=== PATIENT | male | born 1940 | race Caucasian/White ===

== ENCOUNTER 2017-09-30 10:19 | Inpatient (IN) | payer MEDICAID, MEDICARE ==
[~2017-09-30] VITALS: Ht 170.2 cm; Wt 80.5 kg
[~2017-09-30 10:19] MED LIST: ALBUTEROL INHALER; LISINOPRIL
[2017-09-30] MEDS ORDERED: ALBUTEROL/IPRATROPIUM 2.5MG/0.5MG, 3 ML NPPB SCH (11:00)
[2017-09-30 11:13] LABS: BASOPHILS # (AUTO) 0.01 x10^3/uL (0-0.1); BASOPHILS % (AUTO) 0 % (0-1); EOSINOPHILS # (AUTO) 0.03 x10^3/uL (0-0.4); EOSINOPHILS % (AUTO) 0 % (1-7); LYMPHOCYTES # (AUTO) 1.46 x10^3/uL (1-3.4); LYMPHOCYTES % (AUTO) 11 % (22-44); MD NO; MEAN CORPUSCULAR HEMOGLOBIN 30.5 pg (27.5-34.5); MEAN CORPUSCULAR HGB CONC 33.9 g/dL (33.2-36.2); MEAN PLATELET VOLUME 8.2 fL (7.4-10.4); MONOCYTES % (AUTO) 6 % (2-9); NEUTROPHILS # (AUTO) 11.41 x10^3/uL (1.8-6.8); NEUTROPHILS % (AUTO) 83 % (42-75); PLATELET COUNT 233 x10^3/uL (130-400); RED BLOOD COUNT 4.28 x10^6/uL (4.38-5.82); RED CELL DISTRIBUTION WIDTH 15.4 % (9.4-14.8)
[2017-09-30 11:24] LABS: ALBUMIN 3.8 g/dL (3.4-5.0); ANION GAP 9 mmol/L (5-15); CALCIUM 8.7 mg/dL (8.5-10.1); CHLORIDE 103 mmol/L (98-107)
[2017-09-30 11:28] LABS: TROPONIN I < 0.015 ng/mL (0.000-0.045)
[2017-09-30] MEDS ORDERED: ALBUTEROL/IPRATROPIUM 2.5MG/0.5MG, 3 ML ONE (11:40)
[2017-09-30] MEDS ORDERED: ASPI-515 PO (12:01)
[2017-09-30] MEDS ORDERED: ONDANSETRON 2MG/ML, 2ML IVPush PRN (13:30)
[2017-09-30] MEDS ORDERED: CEFTRIAXONE 1,000 MG in SODIUM CHLORIDE 0.9% 50 ML IVPB ONE (13:30)
[2017-09-30] MEDS ORDERED: POLYETHYLENE GLYCOL 17 GM PACKET PO PRN (13:30)
[2017-09-30] MEDS ORDERED: ONDANSETRON ODT 4 MG PO PRN (13:30)
[2017-09-30] MEDS ORDERED: ACETAMINOPHEN 325 MG TABLET PO PRN (13:30)
[2017-09-30] MEDS ORDERED: ALBUTEROL/IPRATROPIUM 2.5MG/0.5MG, 3 ML NPPB PRN (14:00)
[2017-09-30] MEDS: ALBUTEROL/IPRATROPIUM 2.5MG/0.5MG, 3 ML NPPB SCH ×2 (14:34→19:55)
[2017-09-30 14:37] VITALS: BP 130/70
[2017-09-30] MEDS: SODIUM CHLORIDE 0.9% 1,000 ML IV SCH (16:11)
[2017-09-30] MEDS: AZITHROMYCIN 500 MG in SODIUM CHLORIDE 0.9% 250 ML IV SCH (16:12)
[2017-09-30] MEDS: ENOXAPARIN 40 MG/0.4 ML SQ SCH (16:12)
[2017-09-30] MEDS: methylPREDNISolone SOD SUCC 40 MG/ML IVPush SCH ×2 (16:12→22:06)
[2017-09-30] MEDS: CEFTRIAXONE 1,000 MG in SODIUM CHLORIDE 0.9% 50 ML IV SCH (17:22)
[2017-09-30 19:18] VITALS: BP 159/74
[2017-10-01 00:18] VITALS: BP 144/64
[2017-10-01 05:20] LABS: BASOPHILS % (AUTO) 0 % (0-1); EOSINOPHILS % (AUTO) 0 % (1-7); LYMPHOCYTES # (AUTO) 0.54 x10^3/uL (1-3.4); LYMPHOCYTES % (AUTO) 8 % (22-44); MD NO; MEAN CORPUSCULAR HEMOGLOBIN 30.3 pg (27.5-34.5); MEAN CORPUSCULAR HGB CONC 33.7 g/dL (33.2-36.2); MEAN PLATELET VOLUME 8.6 fL (7.4-10.4); MONOCYTES # (AUTO) 0.19 x10^3/uL (0.2-0.8); MONOCYTES % (AUTO) 3 % (2-9); NEUTROPHILS % (AUTO) 89 % (42-75); PLATELET COUNT 165 x10^3/uL (130-400); RED BLOOD COUNT 3.91 x10^6/uL (4.38-5.82); RED CELL DISTRIBUTION WIDTH 15.5 % (9.4-14.8)
[2017-10-01 05:27] LABS: ANION GAP 7 mmol/L (5-15); CALCIUM 8.1 mg/dL (8.5-10.1); CHLORIDE 107 mmol/L (98-107)
[2017-10-01 05:32] LABS: ALANINE AMINOTRANSFERASE 17 U/L (12-78); ALKALINE PHOSPHATASE 68 U/L (45-117); BILIRUBIN,TOTAL 0.6 mg/dL (0.2-1.0); CREATININE 0.74 mg/dL (0.7-1.3); TOTAL PROTEIN 6.8 g/dL (6.4-8.2)
[2017-10-01] MEDS: methylPREDNISolone SOD SUCC 40 MG/ML IVPush SCH (05:48)
[2017-10-01] MEDS: SODIUM CHLORIDE 0.9% 1,000 ML IV SCH ×2 (05:50→23:05)
[2017-10-01] MEDS: ALBUTEROL/IPRATROPIUM 2.5MG/0.5MG, 3 ML NPPB SCH ×4 (07:40→19:47)
[2017-10-01 07:56] VITALS: BP 149/63
[2017-10-01] MEDS: ASPIRIN 81 MG TABLET EC PO SCH (08:04)
[2017-10-01 13:17] VITALS: BP 129/55
[2017-10-01] MEDS: ENOXAPARIN 40 MG/0.4 ML SQ SCH ×2 (16:12→16:43)
[2017-10-01] MEDS: AZITHROMYCIN 500 MG in SODIUM CHLORIDE 0.9% 250 ML IV SCH (16:43)
[2017-10-01] MEDS: CEFTRIAXONE 1,000 MG in SODIUM CHLORIDE 0.9% 50 ML IV SCH (17:59)
[2017-10-01 18:59] VITALS: BP 140/65
[2017-10-02 02:01] VITALS: BP 143/64
[2017-10-02 06:40] VITALS: BP 136/64
[2017-10-02] MEDS: ALBUTEROL/IPRATROPIUM 2.5MG/0.5MG, 3 ML NPPB SCH (07:00)
[2017-10-02] MEDS: ASPIRIN 81 MG TABLET EC PO SCH (08:32)
[2017-10-02 12:39] VITALS: BP 149/61
[2017-10-02] MEDS: ENOXAPARIN 40 MG/0.4 ML SQ SCH (16:12)
[2017-10-02] MEDS: SODIUM CHLORIDE 0.9% 1,000 ML IV SCH (16:48)
[2017-10-02] MEDS: AZITHROMYCIN 500 MG in SODIUM CHLORIDE 0.9% 250 ML IV SCH (16:48)
[2017-10-02] MEDS: CEFTRIAXONE 1,000 MG in SODIUM CHLORIDE 0.9% 50 ML IV SCH (18:27)
[2017-10-02 19:43] VITALS: BP 159/69
[2017-10-03 01:03] VITALS: BP 183/73
[2017-10-03] MEDS: ALBUTEROL/IPRATROPIUM 2.5MG/0.5MG, 3 ML NPPB PRN (01:52)
[2017-10-03 02:50] VITALS: BP 146/62
[2017-10-03 08:00] VITALS: BP 159/69
[2017-10-03] MEDS: ASPIRIN 81 MG TABLET EC PO SCH (08:16)
[2017-10-03] MEDS: SODIUM CHLORIDE 0.9% 1,000 ML IV SCH (09:14)
[2017-10-03 10:02] VITALS: BP 139/59
[2017-10-03] MEDS ORDERED: FUROSEMIDE 20 MG/2 ML IV ONE (10:30)
[2017-10-03] MEDS: GUAIFENESIN 200 MG TABLET PO SCH ×3 (12:23→19:53)
[2017-10-03] MEDS: LISINOPRIL 5 MG TABLET PO SCH (12:25)
[2017-10-03 14:28] VITALS: BP 133/60
[2017-10-03] MEDS: ENOXAPARIN 40 MG/0.4 ML SQ SCH (16:31)
[2017-10-03] MEDS: AZITHROMYCIN 500 MG in SODIUM CHLORIDE 0.9% 250 ML IV SCH (17:30)
[2017-10-03 19:07] VITALS: BP 166/72
[2017-10-03] MEDS: CEFTRIAXONE 1,000 MG in SODIUM CHLORIDE 0.9% 50 ML IV SCH (19:53)
[2017-10-03] MEDS ORDERED: ATORVASTATIN 40 MG TABLET PO SCH (21:00)
[2017-10-04 01:28] VITALS: BP 163/67
[2017-10-04] MEDS: ALBUTEROL/IPRATROPIUM 2.5MG/0.5MG, 3 ML NPPB PRN (03:39)
[2017-10-04] MEDS: GUAIFENESIN 200 MG TABLET PO SCH ×2 (05:30→09:08)
[2017-10-04 07:24] VITALS: BP_SYST 133; BP_SYST 152; BP_DIAS 66; BP_DIAS 69
[2017-10-04] MEDS: ASPIRIN 81 MG TABLET EC PO SCH (09:08)
[2017-10-04] MEDS: LISINOPRIL 5 MG TABLET PO SCH (09:09)
[2017-10-04] MEDS ORDERED: CEFD300C37 PO (10:02)
[2017-10-04] MEDS ORDERED: ALBU8.5H8 INH (10:02)
[2017-10-04] MEDS ORDERED: ATOR40TA78 PO (10:02)
[2017-10-04] MEDS ORDERED: GUAI200T3 PO (10:02)
[2017-10-04] MEDS ORDERED: ASPI-621 PO (10:02)
[2017-10-04] MEDS ORDERED: PRED20TA PO (10:02)
[2017-10-04] MEDS ORDERED: AZIT500T5 PO (10:02)
[2017-10-04] MEDS ORDERED: LISI5TAB7 PO (10:02)
[2017-10-04] MEDS ORDERED: CEFDINIR 300 MG CAPSULE PO SCH (11:00)
[2017-10-04] MEDS ORDERED: AZITHROMYCIN 500 MG TABLET PO SCH (12:00)
[2017-10-05] MEDS ORDERED: LISINOPRIL 10 MG TABLET PO SCH (09:00)
== END 2017-10-04 13:31 | disposition home or self-care (01) | DRG 193 ==
LOC: ED 12:55 → SUATTDRO 13:12 → EDIP 13:18 → 3NE 14:25 → DCLOUNGE 10-04 13:23
PROVIDERS: ADMIT Hospitalist; ATTEND Hospitalist
DX: J18.9 Pneumonia, unspecified organism (principal); J96.21 Acute and chronic respiratory failure with hypoxia; E43 Unspecified severe protein-calorie malnutrition; N17.0 Acute kidney failure with tubular necrosis; J44.0 Chronic obstructive pulmonary disease with (acute) lower respiratory infection; J44.1 Chronic obstructive pulmonary disease with (acute) exacerbation; F17.210 Nicotine dependence, cigarettes, uncomplicated; D64.9 Anemia, unspecified; E11.9 Type 2 diabetes mellitus without complications; I10 Essential (primary) hypertension; I25.10 Atherosclerotic heart disease of native coronary artery without angina pectoris; R79.89 Other specified abnormal findings of blood chemistry; Z99.81 Dependence on supplemental oxygen; I25.2 Old myocardial infarction; Z95.5 Presence of coronary angioplasty implant and graft; Z91.14 Patient's other noncompliance with medication regimen; Z68.27 Body mass index [BMI] 27.0-27.9, adult
CPT/HCPCS: 36415; 71045; 80048; 80053; 82040; 83735; 83880; 84100; 84484; 85025; 87040; 93005; 93306; 94640; 99285; J0456; J0696; J1650; J7620; J1940; J2920; J7030; J7050; J7512

== ENCOUNTER 2017-11-03 09:25 | Inpatient (IN) | payer MEDICARE ==
[~2017-11-03] VITALS: Ht 167.6 cm; Wt 70.7 kg
[~2017-11-03 09:25] MED LIST changes: +ALBU8.5H8 INH; +ASPI-515 PO; +ASPI-621 PO; +ATOR40TA78 PO; +AZIT500T5 PO; +CEFD300C37 PO; +GUAI200T3 PO; +LISI5TAB7 PO; +PRED20TA PO
[2017-11-03] MEDS ORDERED: ALBUTEROL/IPRATROPIUM 2.5MG/0.5MG, 3 ML ONE ×2 (09:57→11:18)
[2017-11-03] MEDS ORDERED: AZITHROMYCIN 250 MG TABLET PO ONE (10:00)
[2017-11-03] MEDS: ALBUTEROL/IPRATROPIUM 2.5MG/0.5MG, 3 ML NPPB SCH ×2 (10:02→11:21)
[2017-11-03 10:18] LABS: BASOPHILS # (AUTO) 0.05 x10^3/uL (0-0.1); BASOPHILS % (AUTO) 1 % (0-1); EOSINOPHILS # (AUTO) 0.09 x10^3/uL (0-0.4); EOSINOPHILS % (AUTO) 1 % (1-7); LYMPHOCYTES # (AUTO) 1.22 x10^3/uL (1-3.4); LYMPHOCYTES % (AUTO) 19 % (22-44); MD NO; MEAN CORPUSCULAR HEMOGLOBIN 29.1 pg (27.5-34.5); MEAN CORPUSCULAR HGB CONC 32.6 g/dL (33.2-36.2); MEAN CORPUSCULAR VOLUME 89.2 fL (81-97); MEAN PLATELET VOLUME 7.7 fL (7.4-10.4); MONOCYTES # (AUTO) 0.35 x10^3/uL (0.2-0.8); MONOCYTES % (AUTO) 5 % (2-9); NEUTROPHILS # (AUTO) 4.69 x10^3/uL (1.8-6.8); NEUTROPHILS % (AUTO) 73 % (42-75); PLATELET COUNT 352 x10^3/uL (130-400); RED BLOOD COUNT 4.37 x10^6/uL (4.38-5.82)
[2017-11-03 10:24] LABS: ALBUMIN 3.1 g/dL (3.4-5.0); ANION GAP 6 mmol/L (5-15); CALCIUM 8.6 mg/dL (8.5-10.1); CHLORIDE 105 mmol/L (98-107); CREATININE 0.78 mg/dL (0.7-1.3)
[2017-11-03 10:28] LABS: TROPONIN I < 0.015 ng/mL (0.000-0.045)
[2017-11-03] MEDS ORDERED: AZITHROMYCIN 250 MG TABLET ONE (10:30)
[2017-11-03] MEDS ORDERED: ALBUTEROL/IPRATROPIUM 2.5MG/0.5MG, 3 ML NEB ONE (11:30)
[2017-11-03] MEDS ORDERED: DOCUSATE 100 MG CAPSULE PO PRN (13:00)
[2017-11-03] MEDS ORDERED: POLYETHYLENE GLYCOL 17 GM PACKET PO PRN (13:00)
[2017-11-03] MEDS ORDERED: BISACODYL 10 MG SUPP PR PRN (13:00)
[2017-11-03] MEDS ORDERED: ONDANSETRON 2MG/ML, 2ML IVPush PRN (13:00)
[2017-11-03] MEDS ORDERED: LABETALOL 5MG/ML, 20ML IVPush PRN (13:00)
[2017-11-03] MEDS ORDERED: ACETAMINOPHEN 325 MG TABLET PO PRN (13:00)
[2017-11-03 13:31] VITALS: BP 166/75
[2017-11-03] MEDS: methylPREDNISolone SOD SUCC 125 MG/2 ML IVPush SCH ×2 (13:53→19:42)
[2017-11-03] MEDS: ENOXAPARIN 40 MG/0.4 ML SQ SCH (13:53)
[2017-11-03] MEDS: NICOTINE 14MG/24 HR PATCH.TD24 TD SCH (13:53)
[2017-11-03] MEDS: ALBUTEROL SULFATE 2.5 MG/3 ML NPPB SCH ×2 (15:00→20:00)
[2017-11-03] MEDS ORDERED: ALBUTEROL SULFATE 2.5 MG/3 ML NPPB SCH ×2 (16:00→20:00)
[2017-11-03 19:00] VITALS: BP 137/67
[2017-11-03] MEDS: SODIUM CHLORIDE FLUSH 10ML SYR IVF SCH (21:00)
[2017-11-03] MEDS: GUAIFENESIN ER 600 MG TABLET PO SCH (22:41)
[2017-11-04 01:20] VITALS: BP 163/73
[2017-11-04] MEDS: methylPREDNISolone SOD SUCC 125 MG/2 ML IVPush SCH (02:13)
[2017-11-04 06:44] VITALS: BP 137/69
[2017-11-04] MEDS: ALBUTEROL SULFATE 2.5 MG/3 ML NPPB SCH ×4 (07:53→18:57)
[2017-11-04] MEDS: GUAIFENESIN ER 600 MG TABLET PO SCH ×2 (09:25→22:32)
[2017-11-04] MEDS: SODIUM CHLORIDE FLUSH 10ML SYR IVF SCH ×2 (09:27→21:00)
[2017-11-04 12:04] VITALS: BP 153/53
[2017-11-04] MEDS: NICOTINE 14MG/24 HR PATCH.TD24 TD SCH (13:07)
[2017-11-04] MEDS: ENOXAPARIN 40 MG/0.4 ML SQ SCH (13:07)
[2017-11-04 18:41] VITALS: BP 133/63
[2017-11-05 01:01] VITALS: BP 150/69
[2017-11-05 06:40] VITALS: BP 145/66
[2017-11-05] MEDS: ALBUTEROL SULFATE 2.5 MG/3 ML NPPB SCH ×4 (07:20→20:00)
[2017-11-05] MEDS: GUAIFENESIN ER 600 MG TABLET PO SCH ×2 (08:42→19:53)
[2017-11-05] MEDS: ENOXAPARIN 40 MG/0.4 ML SQ SCH (13:00)
[2017-11-05] MEDS: NICOTINE 14MG/24 HR PATCH.TD24 TD SCH (13:00)
[2017-11-05] MEDS: SODIUM CHLORIDE FLUSH 10ML SYR IVF SCH ×2 (13:02→19:54)
[2017-11-05 13:08] VITALS: BP 117/58
[2017-11-05 18:43] VITALS: BP 137/67
[2017-11-05 19:01] VITALS: BP 95/56
[2017-11-06 01:02] VITALS: BP_SYST 129; BP_SYST 137; BP_DIAS 62; BP_DIAS 67
[2017-11-06] MEDS: ALBUTEROL SULFATE 2.5 MG/3 ML NPPB SCH ×3 (06:49→13:13)
[2017-11-06 07:00] VITALS: BP 153/75
[2017-11-06] MEDS ORDERED: FLUTICASONE/VILANTEROL 200-25MCG/INH INH SCH (09:00)
[2017-11-06] MEDS: GUAIFENESIN ER 600 MG TABLET PO SCH (09:51)
[2017-11-06] MEDS: SODIUM CHLORIDE FLUSH 10ML SYR IVF SCH (09:51)
[2017-11-06 12:06] VITALS: BP 150/68
[2017-11-06] MEDS: NICOTINE 14MG/24 HR PATCH.TD24 TD SCH (13:24)
[2017-11-06] MEDS: ENOXAPARIN 40 MG/0.4 ML SQ SCH (13:28)
[2017-11-06] MEDS ORDERED: ALBU8.5H8 INH (16:24)
[2017-11-06] MEDS ORDERED: GUAI600T31 PO (16:24)
[2017-11-06] MEDS ORDERED: PRED20TA PO (16:24)
[2017-11-06] MEDS ORDERED: FLUT1BLS INH (16:24)
== END 2017-11-06 18:30 | disposition home health service (06) | DRG 189 ==
LOC: ED 10:30 → EDIP 12:04 → 3NW 13:24
PROVIDERS: ADMIT Hospitalist; ATTEND Hospitalist
DX: J96.01 Acute respiratory failure with hypoxia (principal); J44.1 Chronic obstructive pulmonary disease with (acute) exacerbation; E44.1 Mild protein-calorie malnutrition; I11.9 Hypertensive heart disease without heart failure; Z66 Do not resuscitate; I25.10 Atherosclerotic heart disease of native coronary artery without angina pectoris; F17.210 Nicotine dependence, cigarettes, uncomplicated; R73.9 Hyperglycemia, unspecified; I25.2 Old myocardial infarction; E78.5 Hyperlipidemia, unspecified; Z85.46 Personal history of malignant neoplasm of prostate; Z59.0 Homelessness; Z83.3 Family history of diabetes mellitus; Z90.89 Acquired absence of other organs; Z68.25 Body mass index [BMI] 25.0-25.9, adult
CPT/HCPCS: 36415; 71045; 80048; 82040; 84484; 85025; 93005; 93306; 94640; 99291; G0378; J1650; J7613; J7620; J2930; J7512

== ENCOUNTER 2017-11-16 00:48 | Inpatient (IN) | payer MEDICARE ==
[~2017-11-16] VITALS: Ht 167.6 cm; Wt 72.7 kg
[~2017-11-16 00:48] MED LIST changes: +FLUT1BLS INH; +GUAI600T31 PO
[2017-11-16] MEDS ORDERED: ACETAMINOPHEN 325 MG TABLET ONE (01:00)
[2017-11-16] MEDS ORDERED: CEFTRIAXONE PMX 1GM/50ML 50 ML ONE (01:00)
[2017-11-16] MEDS ORDERED: ACETAMINOPHEN 325 MG TABLET PO ONE (01:00)
[2017-11-16] MEDS ORDERED: SODIUM CHLORIDE 0.9% 1,000ML IVBOLUS ONE (01:00)
[2017-11-16] MEDS ORDERED: CEFTRIAXONE 1,000 MG IV ONE (01:00)
[2017-11-16] MEDS ORDERED: AZITHROMYCIN 500 MG in SODIUM CHLORIDE 0.9% 250 ML IV ONE (01:00)
[2017-11-16 01:31] LABS: MEAN CORPUSCULAR HGB CONC 33.6 g/dL (33.2-36.2); MEAN CORPUSCULAR VOLUME 89.3 fL (81-97); MEAN PLATELET VOLUME 8.3 fL (7.4-10.4); PLATELET COUNT 232 x10^3/uL (130-400); RED BLOOD COUNT 3.84 x10^6/uL (4.38-5.82)
[2017-11-16 01:42] LABS: ALBUMIN 2.7 g/dL (3.4-5.0); ANION GAP 6 mmol/L (5-15); CHLORIDE 105 mmol/L (98-107); CREATININE 0.86 mg/dL (0.7-1.3)
[2017-11-16 01:45] LABS: TROPONIN I 0.015 ng/mL (0.000-0.045)
[2017-11-16 01:49] LABS: BASOPHILS # (AUTO) 0.02 x10^3/uL (0-0.1); BASOPHILS % (AUTO) 0 % (0-1); EOSINOPHILS # (AUTO) 0.01 x10^3/uL (0-0.4); EOSINOPHILS % (AUTO) 0 % (1-7); LYMPHOCYTES # (AUTO) 0.32 x10^3/uL (1-3.4); LYMPHOCYTES % (AUTO) 1 % (22-44); MD SCAN; MONOCYTES # (AUTO) 0.37 x10^3/uL (0.2-0.8); MONOCYTES % (AUTO) 2 % (2-9); NEUTROPHILS # (AUTO) 22.22 x10^3/uL (1.8-6.8); NEUTROPHILS % (AUTO) 97 % (42-75)
[2017-11-16] MEDS ORDERED: ASPI-496 PO (01:52)
[2017-11-16 03:15] VITALS: BP 105/56
[2017-11-16] MEDS ORDERED: ONDANSETRON 2MG/ML, 2ML IVPush PRN (03:30)
[2017-11-16] MEDS ORDERED: POLYETHYLENE GLYCOL 17 GM PACKET PO PRN (03:30)
[2017-11-16] MEDS ORDERED: morphine SULFATE 10 MG/ML, 1ML IVPush PRN (03:30)
[2017-11-16] MEDS ORDERED: PROMETHAZINE 25 MG/ML, 1ML IM PRN (03:30)
[2017-11-16] MEDS ORDERED: DOCUSATE 100 MG CAPSULE PO PRN (03:30)
[2017-11-16] MEDS ORDERED: LABETALOL 5MG/ML, 20ML IVPush PRN (03:30)
[2017-11-16] MEDS ORDERED: BISACODYL 10 MG SUPP PR PRN (03:30)
[2017-11-16] MEDS ORDERED: ONDANSETRON ODT 4 MG PO PRN (03:30)
[2017-11-16] MEDS ORDERED: ACETAMINOPHEN 325 MG TABLET PO PRN (03:30)
[2017-11-16] MEDS ORDERED: hydrALAzine 20 MG/ML, 1ML IVPush PRN (03:30)
[2017-11-16] MEDS ORDERED: OXYcodone IR 5MG TABLET PO PRN (03:30)
[2017-11-16] MEDS ORDERED: CEFTRIAXONE 1,000 MG in SODIUM CHLORIDE 0.9% 50 ML IV ONE (04:00)
[2017-11-16] MEDS ORDERED: ALBUTEROL/IPRATROPIUM 2.5MG/0.5MG, 3 ML NPPB PRN (04:00)
[2017-11-16 04:07] LABS: FREE T4 (FREE THYROXINE) 1.28 ng/dL (0.76-1.46); THYROID STIMULATING HORMONE 1.07 mIU/L (0.358-3.740)
[2017-11-16 04:12] LABS: HEMOGLOBIN A1C 6.1 % (4.2-6.3)
[2017-11-16] MEDS: ALBUTEROL/IPRATROPIUM 2.5MG/0.5MG, 3 ML NPPB SCH ×5 (04:39→19:35)
[2017-11-16] MEDS: HEPARIN 5,000 UNITS/ML, 1ML SQ SCH ×3 (04:49→21:36)
[2017-11-16] MEDS: NICOTINE 7 MG/24 HR PATCH.TD24 TD SCH (04:49)
[2017-11-16 06:44] LABS: TROPONIN I 0.024 ng/mL (0.000-0.045)
[2017-11-16] MEDS: ASPIRIN 81 MG TABLET EC PO SCH (06:45)
[2017-11-16] MEDS ORDERED: OMNIPAQUE 350 MG/ML, 100ML BOTTLE ONE (07:57)
[2017-11-16 08:27] VITALS: BP 126/79
[2017-11-16] MEDS: FLUTICASONE/VILANTEROL 200-25MCG/INH INH SCH (10:17)
[2017-11-16 12:33] LABS: TROPONIN I < 0.015 ng/mL (0.000-0.045)
[2017-11-16 13:44] VITALS: BP 116/65
[2017-11-16 16:11] LABS: MICROSCOPIC NOT IND
[2017-11-16 16:13] LABS: CULTURE INDICATED? NO
[2017-11-16 18:31] VITALS: BP 127/63
[2017-11-16] MEDS: ATORVASTATIN 10 MG TABLET PO SCH (21:36)
[2017-11-17 01:05] VITALS: BP 147/67
[2017-11-17] MEDS: CEFTRIAXONE 2 GM in SODIUM CHLORIDE 0.9% 50 ML IV SCH (01:32)
[2017-11-17] MEDS: AZITHROMYCIN 500 MG in SODIUM CHLORIDE 0.9% 250 ML IV SCH (02:55)
[2017-11-17 05:27] LABS: BASOPHILS # (AUTO) 0.01 x10^3/uL (0-0.1); BASOPHILS % (AUTO) 0 % (0-1); EOSINOPHILS # (AUTO) 0.06 x10^3/uL (0-0.4); EOSINOPHILS % (AUTO) 1 % (1-7); LYMPHOCYTES # (AUTO) 0.89 x10^3/uL (1-3.4); LYMPHOCYTES % (AUTO) 12 % (22-44); MD NO; MEAN CORPUSCULAR HEMOGLOBIN 30.1 pg (27.5-34.5); MEAN CORPUSCULAR HGB CONC 33.6 g/dL (33.2-36.2); MEAN CORPUSCULAR VOLUME 89.6 fL (81-97); MEAN PLATELET VOLUME 8.5 fL (7.4-10.4); MONOCYTES # (AUTO) 0.41 x10^3/uL (0.2-0.8); MONOCYTES % (AUTO) 5 % (2-9); NEUTROPHILS # (AUTO) 6.34 x10^3/uL (1.8-6.8); NEUTROPHILS % (AUTO) 82 % (42-75); PLATELET COUNT 185 x10^3/uL (130-400); RED BLOOD COUNT 3.29 x10^6/uL (4.38-5.82); RED CELL DISTRIBUTION WIDTH 15.4 % (9.4-14.8)
[2017-11-17 05:34] LABS: CHLORIDE 107 mmol/L (98-107)
[2017-11-17 05:52] LABS: ALANINE AMINOTRANSFERASE 10 U/L (12-78); ALBUMIN 2.2 g/dL (3.4-5.0); ALKALINE PHOSPHATASE 61 U/L (45-117); ANION GAP 7 mmol/L (5-15); BILIRUBIN,TOTAL 0.8 mg/dL (0.2-1.0); CHOLESTEROL, TOTAL 132 mg/dL (140-239); CREATININE 0.64 mg/dL (0.7-1.3); HDL CHOL % 33 % (26-37); HDL CHOLESTEROL (DIRECT) 44 mg/dL (40-60); LDL CHOLESTEROL,CALCULATED 70 mg/dL (54-169); LDL/HDL RATIO 1.6 (0.5-3.0); TOTAL PROTEIN 5.7 g/dL (6.4-8.2); TRIGLYCERIDES 92 mg/dL (50-200); VLDL CHOLESTEROL 18 mg/dL (0-25)
[2017-11-17] MEDS: HEPARIN 5,000 UNITS/ML, 1ML SQ SCH ×3 (06:15→21:12)
[2017-11-17] MEDS: ASPIRIN 81 MG TABLET EC PO SCH (06:15)
[2017-11-17] MEDS: NICOTINE 7 MG/24 HR PATCH.TD24 TD SCH (06:16)
[2017-11-17] MEDS: ALBUTEROL/IPRATROPIUM 2.5MG/0.5MG, 3 ML NPPB SCH ×4 (07:00→20:00)
[2017-11-17 07:17] VITALS: BP 151/65
[2017-11-17] MEDS: FLUTICASONE/VILANTEROL 200-25MCG/INH INH SCH (09:58)
[2017-11-17] MEDS ORDERED: POTASSIUM CHLORIDE 20 MEQ TAB.ER.PRT PO ONE (11:00)
[2017-11-17 13:14] VITALS: BP 122/62
[2017-11-17 19:02] VITALS: BP 143/65
[2017-11-17] MEDS: ATORVASTATIN 10 MG TABLET PO SCH (21:12)
[2017-11-18 00:41] VITALS: BP 146/67
[2017-11-18] MEDS: CEFTRIAXONE 2 GM in SODIUM CHLORIDE 0.9% 50 ML IV SCH (01:31)
[2017-11-18] MEDS: AZITHROMYCIN 500 MG in SODIUM CHLORIDE 0.9% 250 ML IV SCH (02:24)
[2017-11-18 05:09] LABS: BASOPHILS # (AUTO) 0.02 x10^3/uL (0-0.1); BASOPHILS % (AUTO) 0 % (0-1); EOSINOPHILS # (AUTO) 0.05 x10^3/uL (0-0.4); EOSINOPHILS % (AUTO) 1 % (1-7); LYMPHOCYTES % (AUTO) 16 % (22-44); MD NO; MEAN CORPUSCULAR HEMOGLOBIN 29.1 pg (27.5-34.5); MEAN CORPUSCULAR VOLUME 88.2 fL (81-97); MEAN PLATELET VOLUME 8.4 fL (7.4-10.4); MONOCYTES # (AUTO) 0.38 x10^3/uL (0.2-0.8); MONOCYTES % (AUTO) 6 % (2-9); NEUTROPHILS % (AUTO) 77 % (42-75); PLATELET COUNT 205 x10^3/uL (130-400); RED BLOOD COUNT 3.47 x10^6/uL (4.38-5.82); RED CELL DISTRIBUTION WIDTH 15.4 % (9.4-14.8)
[2017-11-18 05:24] LABS: ANION GAP 8 mmol/L (5-15); CALCIUM 8.2 mg/dL (8.5-10.1); CHLORIDE 107 mmol/L (98-107); CREATININE 0.62 mg/dL (0.7-1.3)
[2017-11-18] MEDS: NICOTINE 7 MG/24 HR PATCH.TD24 TD SCH (06:08)
[2017-11-18] MEDS: ASPIRIN 81 MG TABLET EC PO SCH (06:08)
[2017-11-18] MEDS: HEPARIN 5,000 UNITS/ML, 1ML SQ SCH ×3 (06:09→22:14)
[2017-11-18] MEDS: ALBUTEROL/IPRATROPIUM 2.5MG/0.5MG, 3 ML NPPB SCH ×4 (07:00→19:20)
[2017-11-18 07:24] VITALS: BP 138/73
[2017-11-18] MEDS: FLUTICASONE/VILANTEROL 200-25MCG/INH INH SCH (09:59)
[2017-11-18 12:56] VITALS: BP 117/64
[2017-11-18] MEDS: ATORVASTATIN 10 MG TABLET PO SCH (19:30)
[2017-11-18 20:20] VITALS: BP 143/60
[2017-11-19] MEDS: CEFTRIAXONE 2 GM in SODIUM CHLORIDE 0.9% 50 ML IV SCH (00:54)
[2017-11-19] MEDS: AZITHROMYCIN 500 MG in SODIUM CHLORIDE 0.9% 250 ML IV SCH (02:21)
[2017-11-19 02:29] VITALS: BP 161/73
[2017-11-19] MEDS: NICOTINE 7 MG/24 HR PATCH.TD24 TD SCH (05:16)
[2017-11-19] MEDS: ASPIRIN 81 MG TABLET EC PO SCH (05:16)
[2017-11-19] MEDS: HEPARIN 5,000 UNITS/ML, 1ML SQ SCH (05:16)
[2017-11-19 07:15] VITALS: BP 160/67
[2017-11-19] MEDS: FLUTICASONE/VILANTEROL 200-25MCG/INH INH SCH (08:41)
[2017-11-19] MEDS: ALBUTEROL/IPRATROPIUM 2.5MG/0.5MG, 3 ML NPPB SCH (10:27)
[2017-11-19] MEDS ORDERED: ATOR10TA9 PO (12:43)
[2017-11-19] MEDS ORDERED: ASPI-496 PO (12:43)
[2017-11-19] MEDS ORDERED: AZIT500T PO (12:43)
[2017-11-19] MEDS ORDERED: DOCU-131 PO (12:43)
[2017-11-19] MEDS ORDERED: IPRA3AMP30 NPPB (12:43)
[2017-11-19] MEDS ORDERED: CEFD300C37 PO (12:43)
[2017-11-19] MEDS ORDERED: FLUT1BLS INH (12:43)
== END 2017-11-19 13:13 | disposition home or self-care (01) | DRG 871 ==
LOC: ED 02:29 → 4NOR 02:57 → DCLOUNGE 11-19 13:00
PROVIDERS: ADMIT Internal Medicine; ATTEND Internal Medicine
DX: A41.9 Sepsis, unspecified organism (principal); J18.1 Lobar pneumonia, unspecified organism; J96.21 Acute and chronic respiratory failure with hypoxia; E44.0 Moderate protein-calorie malnutrition; J44.0 Chronic obstructive pulmonary disease with (acute) lower respiratory infection; D64.9 Anemia, unspecified; E78.5 Hyperlipidemia, unspecified; F17.200 Nicotine dependence, unspecified, uncomplicated; I10 Essential (primary) hypertension; I25.10 Atherosclerotic heart disease of native coronary artery without angina pectoris; R59.0 Localized enlarged lymph nodes; Z68.25 Body mass index [BMI] 25.0-25.9, adult; Z91.14 Patient's other noncompliance with medication regimen; Z95.5 Presence of coronary angioplasty implant and graft; Z59.0 Homelessness; Z79.82 Long term (current) use of aspirin; Z79.899 Other long term (current) drug therapy; Z83.3 Family history of diabetes mellitus; Z99.81 Dependence on supplemental oxygen
CPT/HCPCS: 36415; 36600; 71045; 71275; 80048; 80053; 80061; 81003; 82040; 82803; 83036; 83605; 83735; 83880; 84439; 84443; 84484; 85025; 87040; 93005; 94640; 96361; 96374; G0378; J0456; J0696; J1644; J7620; Q9967; J7030; J7050

== ENCOUNTER 2017-12-02 23:58 | Observation (INO) | payer MEDICARE ==
[~2017-12-02] VITALS: Ht 170.2 cm; Wt 67.8 kg
[~2017-12-02 23:58] MED LIST changes: +ASPI-496 PO; +ATOR10TA9 PO; +AZIT500T PO; +DOCU-131 PO; +IPRA3AMP30 NPPB
[2017-12-03] MEDS ORDERED: ALBUTEROL/IPRATROPIUM 2.5MG/0.5MG, 3 ML ONE (01:20)
[2017-12-03] MEDS ORDERED: BISACODYL 10 MG SUPP PR PRN (01:30)
[2017-12-03] MEDS ORDERED: ACETAMINOPHEN 325 MG TABLET PO PRN (01:30)
[2017-12-03] MEDS ORDERED: DOCUSATE 100 MG CAPSULE PO PRN (01:30)
[2017-12-03] MEDS ORDERED: ONDANSETRON 2MG/ML, 2ML IVPush PRN (01:30)
[2017-12-03] MEDS ORDERED: hydrALAzine 20 MG/ML, 1ML IVPush PRN (01:30)
[2017-12-03] MEDS ORDERED: PROMETHAZINE 25 MG/ML, 1ML IM PRN (01:30)
[2017-12-03] MEDS: HEPARIN 5,000 UNITS/ML, 1ML SQ SCH ×3 (01:30→16:54)
[2017-12-03] MEDS ORDERED: GABAPENTIN 300 MG CAPSULE PO PRN (01:30)
[2017-12-03] MEDS ORDERED: ONDANSETRON ODT 4 MG PO PRN (01:30)
[2017-12-03] MEDS ORDERED: POLYETHYLENE GLYCOL 17 GM PACKET PO PRN (01:30)
[2017-12-03 02:00] VITALS: BP 132/66
[2017-12-03] MEDS ORDERED: ALBUTEROL/IPRATROPIUM 2.5MG/0.5MG, 3 ML NPPB PRN (02:00)
[2017-12-03 07:03] VITALS: BP 146/61
[2017-12-03] MEDS: ALBUTEROL/IPRATROPIUM 2.5MG/0.5MG, 3 ML NPPB SCH ×5 (07:10→14:20)
[2017-12-03] MEDS ORDERED: ASPIRIN 81 MG TABLET CHEW PO SCH (09:00)
[2017-12-03] MEDS ORDERED: FLUTICASONE/VILANTEROL 200-25MCG/INH INH SCH (09:00)
[2017-12-03 13:27] VITALS: BP 135/53
[2017-12-03] MEDS ORDERED: ATORVASTATIN 10 MG TABLET PO SCH (21:00)
== END 2017-12-03 18:29 | disposition home or self-care (01) ==
LOC: ED 23:59 → EDIP 12-03 01:07 → 3NE 12-03 02:17
PROVIDERS: ADMIT Internal Medicine; ATTEND Internal Medicine
DX: J96.11 Chronic respiratory failure with hypoxia (principal); D64.9 Anemia, unspecified; E44.0 Moderate protein-calorie malnutrition; E78.5 Hyperlipidemia, unspecified; F17.200 Nicotine dependence, unspecified, uncomplicated; I10 Essential (primary) hypertension; I25.10 Atherosclerotic heart disease of native coronary artery without angina pectoris; J18.9 Pneumonia, unspecified organism; J44.0 Chronic obstructive pulmonary disease with (acute) lower respiratory infection; Z59.0 Homelessness; Z83.3 Family history of diabetes mellitus; Z95.5 Presence of coronary angioplasty implant and graft
CPT/HCPCS: 94640; 99285; G0378; J1644; J7620

== ENCOUNTER 2017-12-09 11:41 | Inpatient (IN) | payer MEDICARE ==
[~2017-12-09] VITALS: Ht 168.9 cm; Wt 66.1 kg
[2017-12-09] MEDS ORDERED: MAGNESIUM SULFATE PMX 2GM/50ML 50 ML IVPB ONE (12:00)
[2017-12-09] MEDS ORDERED: SODIUM CHLORIDE FLUSH 10ML SYR IVF ONE (12:00)
[2017-12-09] MEDS ORDERED: methylPREDNISolone SOD SUCC 125 MG/2 ML IVP ONE (12:00)
[2017-12-09] MEDS ORDERED: methylPREDNISolone SOD SUCC 125 MG/2 ML ONE (12:04)
[2017-12-09 12:28] LABS: BASOPHILS # (AUTO) 0.02 x10^3/uL (0-0.1); BASOPHILS % (AUTO) 0 % (0-1); EOSINOPHILS # (AUTO) 0.03 x10^3/uL (0-0.4); EOSINOPHILS % (AUTO) 0 % (1-7); LYMPHOCYTES # (AUTO) 1.12 x10^3/uL (1-3.4); LYMPHOCYTES % (AUTO) 12 % (22-44); MD NO; MEAN CORPUSCULAR HEMOGLOBIN 28.8 pg (27.5-34.5); MEAN CORPUSCULAR HGB CONC 32.6 g/dL (33.2-36.2); MEAN CORPUSCULAR VOLUME 88.2 fL (81-97); MEAN PLATELET VOLUME 8.1 fL (7.4-10.4); MONOCYTES # (AUTO) 0.42 x10^3/uL (0.2-0.8); MONOCYTES % (AUTO) 5 % (2-9); NEUTROPHILS % (AUTO) 83 % (42-75); PLATELET COUNT 250 x10^3/uL (130-400); RED BLOOD COUNT 3.69 x10^6/uL (4.38-5.82); RED CELL DISTRIBUTION WIDTH 14.9 % (9.4-14.8)
[2017-12-09 12:38] LABS: ALANINE AMINOTRANSFERASE 10 U/L (12-78); ALBUMIN 2.6 g/dL (3.4-5.0); ANION GAP 7 mmol/L (5-15); CALCIUM 8.7 mg/dL (8.5-10.1); CHLORIDE 101 mmol/L (98-107); CREATININE 0.77 mg/dL (0.7-1.3)
[2017-12-09 12:42] LABS: ALKALINE PHOSPHATASE 71 U/L (45-117); BILIRUBIN,TOTAL 1.3 mg/dL (0.2-1.0); TROPONIN I < 0.015 ng/mL (0.000-0.045)
[2017-12-09] MEDS ORDERED: LEVOFLOXACIN/PMX 500MG/100ML 100 ML IV ONE (13:30)
[2017-12-09] MEDS ORDERED: SODIUM CHLORIDE 0.9% 1,000ML IVBOLUS ONE (13:30)
[2017-12-09] MEDS ORDERED: LEVOFLOXACIN/PMX 500MG/100ML 100 ML ONE (13:41)
[2017-12-09] MEDS ORDERED: ALBUTEROL/IPRATROPIUM 2.5MG/0.5MG, 3 ML ONE (13:54)
[2017-12-09] MEDS ORDERED: SODIUM CHLORIDE FLUSH 10ML SYR IVF PRN (14:00)
[2017-12-09] MEDS: ALBUTEROL/IPRATROPIUM 2.5MG/0.5MG, 3 ML NPPB SCH ×2 (14:06→19:02)
[2017-12-09] MEDS ORDERED: ACETAMINOPHEN 325 MG TABLET PO PRN (14:30)
[2017-12-09] MEDS ORDERED: POLYETHYLENE GLYCOL 17 GM PACKET PO PRN (14:30)
[2017-12-09] MEDS ORDERED: DOCUSATE 100 MG CAPSULE PO PRN (14:30)
[2017-12-09] MEDS ORDERED: ONDANSETRON 2MG/ML, 2ML IVPush PRN (14:30)
[2017-12-09] MEDS ORDERED: BISACODYL 10 MG SUPP PR PRN (14:30)
[2017-12-09] MEDS ORDERED: IBUPROFEN 600 MG TABLET PO PRN (14:30)
[2017-12-09] MEDS ORDERED: NITROGLYCERIN 0.4 MG BOTTLE (25 TABS) SL PRN (14:30)
[2017-12-09] MEDS ORDERED: GUAIFENESIN/DM 200-20MG, 10ML UDC PO PRN (14:30)
[2017-12-09] MEDS: LEVOFLOXACIN/PMX 750MG/150ML 150 ML IV SCH (14:30)
[2017-12-09] MEDS ORDERED: ENALAPRILAT 1.25 MG/ML, 2ML IVPush PRN (14:30)
[2017-12-09] MEDS ORDERED: LABETALOL 5MG/ML, 20ML IVPush PRN (14:30)
[2017-12-09] MEDS ORDERED: ONDANSETRON ODT 4 MG PO PRN (14:30)
[2017-12-09 14:55] VITALS: BP 129/63
[2017-12-09 15:09] VITALS: BP 129/63
[2017-12-09 15:33] LABS: TROPONIN I < 0.015 ng/mL (0.000-0.045)
[2017-12-09] MEDS: ENOXAPARIN 40 MG/0.4 ML SQ SCH (15:35)
[2017-12-09] MEDS: methylPREDNISolone SOD SUCC 125 MG/2 ML IVPush SCH ×2 (17:17→23:58)
[2017-12-09 20:06] VITALS: BP 123/67
[2017-12-09] MEDS: ATORVASTATIN 10 MG TABLET PO SCH (20:38)
[2017-12-09 20:42] LABS: TROPONIN I < 0.015 ng/mL (0.000-0.045)
[2017-12-10 02:09] VITALS: BP 134/63
[2017-12-10] MEDS: methylPREDNISolone SOD SUCC 125 MG/2 ML IVPush SCH ×4 (05:42→23:44)
[2017-12-10 06:09] LABS: ALANINE AMINOTRANSFERASE 14 U/L (12-78); ALBUMIN 2.4 g/dL (3.4-5.0); ANION GAP 6 mmol/L (5-15); CALCIUM 8.4 mg/dL (8.5-10.1); CHLORIDE 101 mmol/L (98-107)
[2017-12-10 06:12] LABS: ALKALINE PHOSPHATASE 66 U/L (45-117); BILIRUBIN,TOTAL 0.4 mg/dL (0.2-1.0); CREATININE 0.82 mg/dL (0.7-1.3); TOTAL PROTEIN 6.8 g/dL (6.4-8.2)
[2017-12-10 06:14] LABS: MEAN CORPUSCULAR HEMOGLOBIN 29.1 pg (27.5-34.5); MEAN CORPUSCULAR VOLUME 88.2 fL (81-97); MEAN PLATELET VOLUME 8.4 fL (7.4-10.4); PLATELET COUNT 207 x10^3/uL (130-400); RED CELL DISTRIBUTION WIDTH 14.9 % (9.4-14.8)
[2017-12-10 06:30] VITALS: BP 149/65
[2017-12-10] MEDS: ALBUTEROL/IPRATROPIUM 2.5MG/0.5MG, 3 ML NPPB SCH ×4 (06:45→19:32)
[2017-12-10 06:55] LABS: MD YES
[2017-12-10 06:57] LABS: BAND#(MANUAL) 0.31 x10^3/uL; BANDS%(MANUAL) 5 % (0-7); LYMPH#(MANUAL) 0.37 x10^3/uL (1-3.4); LYMPHS% (MANUAL) 6 % (22-44); MONOS#(MANUAL) 0.06 x10^3/uL (0.3-2.7); MONOS% (MANUAL) 1 % (2-9); SEG#(MANUAL) 5.46 x10^3/uL (1.8-6.8); SEGS% (MANUAL) 88 % (42-75)
[2017-12-10 06:58] LABS: <PLATELET ESTIMATE> ADEQUATE; <PLT MORPHOLOGY> NORMAL PLT MORPH; ANISOCYTOSIS 1+
[2017-12-10] MEDS: FLUTICASONE/VILANTEROL 200-25MCG/INH INH SCH (09:01)
[2017-12-10] MEDS: ASPIRIN 81 MG TABLET EC PO SCH (09:01)
[2017-12-10 13:07] VITALS: BP 144/56
[2017-12-10] MEDS: LEVOFLOXACIN/PMX 750MG/150ML 150 ML IV SCH (15:47)
[2017-12-10] MEDS: ENOXAPARIN 40 MG/0.4 ML SQ SCH (15:50)
[2017-12-10 20:16] VITALS: BP 133/66
[2017-12-10] MEDS: ATORVASTATIN 10 MG TABLET PO SCH (21:34)
[2017-12-11 01:47] VITALS: BP 163/66
[2017-12-11] MEDS: methylPREDNISolone SOD SUCC 125 MG/2 ML IVPush SCH ×3 (06:03→18:12)
[2017-12-11 07:11] VITALS: BP 148/62
[2017-12-11] MEDS: ALBUTEROL/IPRATROPIUM 2.5MG/0.5MG, 3 ML NPPB SCH ×4 (08:25→20:00)
[2017-12-11] MEDS: FLUTICASONE/VILANTEROL 200-25MCG/INH INH SCH (09:00)
[2017-12-11] MEDS: ASPIRIN 81 MG TABLET EC PO SCH (09:14)
[2017-12-11] MEDS: AMPICILLIN/SULBACTAM 3 GM in SODIUM CHLORIDE 0.9% 100 ML IV SCH ×3 (11:43→22:34)
[2017-12-11 12:36] VITALS: BP 120/65
[2017-12-11] MEDS: ENOXAPARIN 40 MG/0.4 ML SQ SCH (15:41)
[2017-12-11 20:04] VITALS: BP 125/63
[2017-12-11] MEDS: ATORVASTATIN 10 MG TABLET PO SCH (20:50)
[2017-12-12] MEDS: methylPREDNISolone SOD SUCC 125 MG/2 ML IVPush SCH ×2 (00:19→06:24)
[2017-12-12 01:55] VITALS: BP 150/65
[2017-12-12] MEDS: AMPICILLIN/SULBACTAM 3 GM in SODIUM CHLORIDE 0.9% 100 ML IV SCH ×4 (04:46→22:00)
[2017-12-12] MEDS: ALBUTEROL/IPRATROPIUM 2.5MG/0.5MG, 3 ML NPPB SCH ×4 (06:50→19:38)
[2017-12-12 07:00] VITALS: BP 160/67
[2017-12-12] MEDS: ASPIRIN 81 MG TABLET EC PO SCH (08:54)
[2017-12-12] MEDS: FLUTICASONE/VILANTEROL 200-25MCG/INH INH SCH (08:54)
[2017-12-12] MEDS: GUAIFENESIN 200 MG TABLET PO SCH ×3 (10:34→22:00)
[2017-12-12 13:10] VITALS: BP 137/68
[2017-12-12] MEDS: ENOXAPARIN 40 MG/0.4 ML SQ SCH (14:47)
[2017-12-12 19:38] VITALS: BP 145/66
[2017-12-12] MEDS: ATORVASTATIN 10 MG TABLET PO SCH (22:00)
[2017-12-13 02:36] VITALS: BP 163/64
[2017-12-13] MEDS: AMPICILLIN/SULBACTAM 3 GM in SODIUM CHLORIDE 0.9% 100 ML IV SCH ×3 (05:11→14:58)
[2017-12-13] MEDS: GUAIFENESIN 200 MG TABLET PO SCH ×3 (05:48→14:58)
[2017-12-13] MEDS: ALBUTEROL/IPRATROPIUM 2.5MG/0.5MG, 3 ML NPPB SCH ×3 (06:45→14:15)
[2017-12-13 08:26] VITALS: BP 152/64
[2017-12-13] MEDS ORDERED: AMPI3VIA IV (08:58)
[2017-12-13] MEDS ORDERED: PRED20TA PO (09:16)
[2017-12-13] MEDS: FLUTICASONE/VILANTEROL 200-25MCG/INH INH SCH (09:44)
[2017-12-13] MEDS: ASPIRIN 81 MG TABLET EC PO SCH (09:44)
[2017-12-13] MEDS: ENOXAPARIN 40 MG/0.4 ML SQ SCH (14:58)
[2017-12-13 15:56] VITALS: BP 145/64
== END 2017-12-13 17:23 | DRG 871 ==
LOC: ED 12:25 → 4EST 13:33
PROVIDERS: ADMIT Hospitalist; ATTEND Family Medicine
DX: A41.9 Sepsis, unspecified organism (principal); J18.9 Pneumonia, unspecified organism; J96.20 Acute and chronic respiratory failure, unspecified whether with hypoxia or hypercapnia; J44.0 Chronic obstructive pulmonary disease with (acute) lower respiratory infection; J44.1 Chronic obstructive pulmonary disease with (acute) exacerbation; E44.0 Moderate protein-calorie malnutrition; F17.200 Nicotine dependence, unspecified, uncomplicated; Z79.82 Long term (current) use of aspirin; Z79.899 Other long term (current) drug therapy; B95.5 Unspecified streptococcus as the cause of diseases classified elsewhere; Z68.23 Body mass index [BMI] 23.0-23.9, adult; E78.5 Hyperlipidemia, unspecified; I10 Essential (primary) hypertension; I25.10 Atherosclerotic heart disease of native coronary artery without angina pectoris; Z59.0 Homelessness; Z95.5 Presence of coronary angioplasty implant and graft; Z99.81 Dependence on supplemental oxygen
CPT/HCPCS: 36415; 71045; 80053; 83605; 83735; 84100; 84484; 85025; 87040; 87077; 87181; 93005; 94640; 96365; 96375; 99291; G0378; J0295; J1650; J1956; J7620; J2930; J3475; J7030; J7512

== ENCOUNTER 2018-01-06 06:23 | Emergency (ER) | payer MEDICARE ==
[~2018-01-06] VITALS: Ht 167.6 cm; Wt 75.0 kg
[~2018-01-06 06:23] MED LIST changes: +AMPI3VIA IV
[2018-01-06 07:13] LABS: BASOPHILS # (AUTO) 0.02 x10^3/uL (0-0.1); BASOPHILS % (AUTO) 0 % (0-1); EOSINOPHILS # (AUTO) 0.16 x10^3/uL (0-0.4); EOSINOPHILS % (AUTO) 3 % (1-7); LYMPHOCYTES # (AUTO) 0.76 x10^3/uL (1-3.4); LYMPHOCYTES % (AUTO) 16 % (22-44); MD NO; MEAN CORPUSCULAR HEMOGLOBIN 29.7 pg (27.5-34.5); MEAN CORPUSCULAR HGB CONC 34.4 g/dL (33.2-36.2); MEAN CORPUSCULAR VOLUME 86.4 fL (81-97); MEAN PLATELET VOLUME 7.4 fL (7.4-10.4); MONOCYTES # (AUTO) 0.35 x10^3/uL (0.2-0.8); MONOCYTES % (AUTO) 7 % (2-9); NEUTROPHILS % (AUTO) 73 % (42-75); PLATELET COUNT 288 x10^3/uL (130-400); RED BLOOD COUNT 3.75 x10^6/uL (4.38-5.82); RED CELL DISTRIBUTION WIDTH 17.1 % (9.4-14.8)
[2018-01-06 07:25] LABS: ALBUMIN 3.1 g/dL (3.4-5.0); ANION GAP 9 mmol/L (5-15); CALCIUM 8.6 mg/dL (8.5-10.1); CHLORIDE 103 mmol/L (98-107)
[2018-01-06 07:39] LABS: TROPONIN I < 0.015 ng/mL (0.000-0.045)
[2018-01-06 07:59] LABS: CREATININE 0.93 mg/dL (0.7-1.3)
[2018-01-06 08:51] VITALS: BP 122/45
== END 2018-01-06 08:54 | disposition home or self-care (01) ==
LOC: ED 07:18
DX: J44.1 Chronic obstructive pulmonary disease with (acute) exacerbation (principal); F17.210 Nicotine dependence, cigarettes, uncomplicated
CPT/HCPCS: 36415; 71045; 80048; 82040; 83880; 84484; 85025; 93005; 99285

== ENCOUNTER 2018-01-06 14:34 | Inpatient (IN) | payer MEDICARE ==
[~2018-01-06] VITALS: Ht 167.6 cm; Wt 67.0 kg
[2018-01-06] MEDS ORDERED: FUROSEMIDE 40 MG/4 ML IVP ONE (15:30)
[2018-01-06] MEDS ORDERED: ALBUTEROL/IPRATROPIUM 2.5MG/0.5MG, 3 ML ONE (15:45)
[2018-01-06] MEDS ORDERED: FUROSEMIDE 40 MG/4 ML ONE (15:46)
[2018-01-06] MEDS ORDERED: methylPREDNISolone SOD SUCC 125 MG/2 ML ONE (15:47)
[2018-01-06] MEDS ORDERED: methylPREDNISolone SOD SUCC 125 MG/2 ML IVP ONE (16:00)
[2018-01-06] MEDS ORDERED: ACETAMINOPHEN 325 MG TABLET PO PRN (16:30)
[2018-01-06] MEDS ORDERED: ALBUTEROL/IPRATROPIUM 2.5MG/0.5MG, 3 ML NEB ONE (16:30)
[2018-01-06] MEDS ORDERED: IBUPROFEN 200 MG TABLET PO PRN (16:30)
[2018-01-06] MEDS: ENOXAPARIN 40 MG/0.4 ML SQ SCH (18:35)
[2018-01-06] MEDS: ALBUTEROL/IPRATROPIUM 2.5MG/0.5MG, 3 ML NPPB SCH (19:01)
[2018-01-06 19:55] VITALS: BP 176/65
[2018-01-06] MEDS: CEFTRIAXONE PMX 2GM/50ML 50 ML IV SCH (19:58)
[2018-01-06] MEDS: ATORVASTATIN 10 MG TABLET PO SCH (21:40)
[2018-01-06] MEDS: AZITHROMYCIN 500 MG in SODIUM CHLORIDE 0.9% 250 ML IV SCH (21:40)
[2018-01-07] MEDS: methylPREDNISolone SOD SUCC 125 MG/2 ML IVPush SCH ×3 (00:18→20:10)
[2018-01-07 03:47] VITALS: BP 147/67
[2018-01-07 06:09] LABS: BASOPHILS # (AUTO) 0.01 x10^3/uL (0-0.1); BASOPHILS % (AUTO) 0 % (0-1); EOSINOPHILS % (AUTO) 0 % (1-7); LYMPHOCYTES # (AUTO) 0.36 x10^3/uL (1-3.4); LYMPHOCYTES % (AUTO) 11 % (22-44); MD NO; MEAN CORPUSCULAR HGB CONC 33.4 g/dL (33.2-36.2); MEAN CORPUSCULAR VOLUME 86.6 fL (81-97); MEAN PLATELET VOLUME 7.8 fL (7.4-10.4); MONOCYTES # (AUTO) 0.04 x10^3/uL (0.2-0.8); MONOCYTES % (AUTO) 1 % (2-9); NEUTROPHILS # (AUTO) 2.91 x10^3/uL (1.8-6.8); NEUTROPHILS % (AUTO) 88 % (42-75); PLATELET COUNT 244 x10^3/uL (130-400); RED BLOOD COUNT 3.75 x10^6/uL (4.38-5.82); RED CELL DISTRIBUTION WIDTH 16.8 % (9.4-14.8)
[2018-01-07 07:20] VITALS: BP 146/66
[2018-01-07 07:20] LABS: ALBUMIN 2.9 g/dL (3.4-5.0); ANION GAP 12 mmol/L (5-15); CALCIUM 8.3 mg/dL (8.5-10.1); CHLORIDE 107 mmol/L (98-107)
[2018-01-07] MEDS: ALBUTEROL/IPRATROPIUM 2.5MG/0.5MG, 3 ML NPPB SCH ×4 (07:20→20:45)
[2018-01-07 07:25] LABS: ALANINE AMINOTRANSFERASE 14 U/L (12-78); ALKALINE PHOSPHATASE 68 U/L (45-117); BILIRUBIN,TOTAL 0.4 mg/dL (0.2-1.0); CREATININE 0.78 mg/dL (0.7-1.3)
[2018-01-07] MEDS: ASPIRIN 81 MG TABLET CHEW PO SCH (09:20)
[2018-01-07] MEDS: FUROSEMIDE 20 MG TABLET PO SCH (09:20)
[2018-01-07] MEDS: POTASSIUM CHLORIDE 20 MEQ TAB.ER.PRT PO SCH (09:25)
[2018-01-07] MEDS: FLUTICASONE/VILANTEROL 200-25MCG/INH INH SCH (13:32)
[2018-01-07 14:18] VITALS: BP 127/60
[2018-01-07] MEDS: ENOXAPARIN 40 MG/0.4 ML SQ SCH (18:04)
[2018-01-07 19:44] VITALS: BP 126/63
[2018-01-07] MEDS: CEFTRIAXONE PMX 2GM/50ML 50 ML IV SCH (20:09)
[2018-01-07] MEDS: ATORVASTATIN 10 MG TABLET PO SCH (20:10)
[2018-01-07] MEDS: AZITHROMYCIN 500 MG in SODIUM CHLORIDE 0.9% 250 ML IV SCH (22:38)
[2018-01-08] MEDS: methylPREDNISolone SOD SUCC 125 MG/2 ML IVPush SCH ×4 (02:26→20:40)
[2018-01-08 02:46] VITALS: BP 164/77
[2018-01-08] MEDS: ALBUTEROL/IPRATROPIUM 2.5MG/0.5MG, 3 ML NPPB SCH ×4 (07:00→20:00)
[2018-01-08] MEDS: FLUTICASONE/VILANTEROL 200-25MCG/INH INH SCH (07:53)
[2018-01-08] MEDS: FUROSEMIDE 20 MG TABLET PO SCH (07:53)
[2018-01-08] MEDS: ASPIRIN 81 MG TABLET CHEW PO SCH (07:53)
[2018-01-08] MEDS: POTASSIUM CHLORIDE 20 MEQ TAB.ER.PRT PO SCH (08:01)
[2018-01-08 08:20] VITALS: BP 129/58
[2018-01-08 12:20] VITALS: BP 145/47
[2018-01-08] MEDS: ENOXAPARIN 40 MG/0.4 ML SQ SCH (17:05)
[2018-01-08 19:25] VITALS: BP 137/61
[2018-01-08] MEDS: ATORVASTATIN 10 MG TABLET PO SCH (20:40)
[2018-01-08] MEDS: CEFTRIAXONE PMX 2GM/50ML 50 ML IV SCH (20:40)
[2018-01-08] MEDS: AZITHROMYCIN 500 MG in SODIUM CHLORIDE 0.9% 250 ML IV SCH (21:53)
[2018-01-09] MEDS: methylPREDNISolone SOD SUCC 125 MG/2 ML IVPush SCH ×4 (01:54→19:58)
[2018-01-09 02:10] VITALS: BP 168/68
[2018-01-09] MEDS: ALBUTEROL/IPRATROPIUM 2.5MG/0.5MG, 3 ML NPPB SCH ×4 (06:51→20:12)
[2018-01-09 07:50] VITALS: BP_SYST 113; BP_SYST 173; BP_DIAS 67; BP_DIAS 76
[2018-01-09] MEDS: FLUTICASONE/VILANTEROL 200-25MCG/INH INH SCH (08:00)
[2018-01-09] MEDS: FUROSEMIDE 20 MG TABLET PO SCH (08:00)
[2018-01-09] MEDS: POTASSIUM CHLORIDE 20 MEQ TAB.ER.PRT PO SCH (08:00)
[2018-01-09] MEDS: ASPIRIN 81 MG TABLET CHEW PO SCH (08:00)
[2018-01-09 08:29] VITALS: BP 176/62
[2018-01-09] MEDS ORDERED: ENALAPRILAT 1.25 MG/ML, 2ML IV ONE (08:30)
[2018-01-09] MEDS ORDERED: PRED10TA PO (10:42)
[2018-01-09] MEDS ORDERED: TIOT18CA INH ×2 (10:42→10:44)
[2018-01-09] MEDS ORDERED: AZIT500T PO (10:42)
[2018-01-09] MEDS ORDERED: SIMV10TA PO (10:44)
[2018-01-09] MEDS ORDERED: LISI20TA PO (10:48)
[2018-01-09 12:28] VITALS: BP 150/68
[2018-01-09] MEDS: LISINOPRIL 20 MG TABLET PO SCH ×2 (12:32→19:59)
[2018-01-09] MEDS: ENOXAPARIN 40 MG/0.4 ML SQ SCH (18:22)
[2018-01-09 19:35] VITALS: BP 145/69
[2018-01-09] MEDS: CEFTRIAXONE PMX 2GM/50ML 50 ML IV SCH (19:59)
[2018-01-09] MEDS: ATORVASTATIN 10 MG TABLET PO SCH (19:59)
[2018-01-09] MEDS: AZITHROMYCIN 500 MG in SODIUM CHLORIDE 0.9% 250 ML IV SCH (22:04)
[2018-01-10 01:34] VITALS: BP 170/68
[2018-01-10] MEDS: methylPREDNISolone SOD SUCC 125 MG/2 ML IVPush SCH (01:55)
[2018-01-10] MEDS: ALBUTEROL/IPRATROPIUM 2.5MG/0.5MG, 3 ML NPPB SCH (06:36)
[2018-01-10 09:07] VITALS: BP 125/55
[2018-01-10] MEDS: ASPIRIN 81 MG TABLET CHEW PO SCH (09:11)
[2018-01-10] MEDS: FUROSEMIDE 20 MG TABLET PO SCH (09:11)
[2018-01-10] MEDS: LISINOPRIL 20 MG TABLET PO SCH (09:12)
[2018-01-10] MEDS: FLUTICASONE/VILANTEROL 200-25MCG/INH INH SCH (09:12)
[2018-01-10] MEDS: POTASSIUM CHLORIDE 20 MEQ TAB.ER.PRT PO SCH (09:12)
[2018-01-10] MEDS ORDERED: ALBUTEROL/IPRATROPIUM 2.5MG/0.5MG, 3 ML NPPB PRN (10:30)
[2018-01-10 15:24] VITALS: BP 159/66
== END 2018-01-10 16:09 | DRG 871 ==
LOC: ED 16:14 → 3NE 16:52
PROVIDERS: ADMIT Hospitalist; ATTEND Internal Medicine
DX: A41.9 Sepsis, unspecified organism (principal); J15.9 Unspecified bacterial pneumonia; J44.1 Chronic obstructive pulmonary disease with (acute) exacerbation; E46 Unspecified protein-calorie malnutrition; J81.1 Chronic pulmonary edema; J44.0 Chronic obstructive pulmonary disease with (acute) lower respiratory infection; E87.70 Fluid overload, unspecified; I10 Essential (primary) hypertension; E78.5 Hyperlipidemia, unspecified; F17.210 Nicotine dependence, cigarettes, uncomplicated; I25.10 Atherosclerotic heart disease of native coronary artery without angina pectoris; Z59.0 Homelessness; Z91.14 Patient's other noncompliance with medication regimen; Z99.81 Dependence on supplemental oxygen; Z68.23 Body mass index [BMI] 23.0-23.9, adult
CPT/HCPCS: 36415; 71045; 80053; 83735; 84100; 85025; 87040; 90656; 93005; 94640; 96374; 96375; 99285; G0378; J0456; J0696; J1650; J1940; J7620; J2930; J7050; J7512

== ENCOUNTER 2018-03-25 14:30 | Inpatient (IN) | payer MEDICARE ==
[~2018-03-25] VITALS: Ht 168.9 cm; Wt 62.3 kg
[~2018-03-25 14:30] MED LIST changes: -ASPI-621 PO; +ASPI81TA45 PO; +LISI20TA PO; +PRED10TA PO; +SIMV10TA PO; +TIOT18CA INH
--- NOTE | 2018-03-25 14:48 | NUR ---
PT NOTED TO HAVE PALE SKIN AND DRY MOUTH MUCOUS MEMBRANES. PT SEEMS TO BE A MOUTH BREATHER. 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
--- NOTE | 2018-03-25 15:12 | NUR ---
after md exam, labs being drawn and cardiovascular tech preparing to complete ekg
[2018-03-25 15:21] LABS: BASOPHILS # (AUTO) 0.01 x10^3/uL (0-0.1); BASOPHILS % (AUTO) 0 % (0-1); EOSINOPHILS # (AUTO) 0.24 x10^3/uL (0-0.4); EOSINOPHILS % (AUTO) 3 % (1-7); LYMPHOCYTES # (AUTO) 1.53 x10^3/uL (1-3.4); LYMPHOCYTES % (AUTO) 20 % (22-44); MD NO; MEAN CORPUSCULAR HEMOGLOBIN 28.2 pg (27.5-34.5); MEAN CORPUSCULAR HGB CONC 32.8 g/dL (33.2-36.2); MEAN CORPUSCULAR VOLUME 85.8 fL (81-97); MEAN PLATELET VOLUME 7.4 fL (7.4-10.4); MONOCYTES % (AUTO) 5 % (2-9); NEUTROPHILS # (AUTO) 5.67 x10^3/uL (1.8-6.8); NEUTROPHILS % (AUTO) 72 % (42-75); PLATELET COUNT 311 x10^3/uL (130-400); RED BLOOD COUNT 3.28 x10^6/uL (4.38-5.82); RED CELL DISTRIBUTION WIDTH 18.7 % (9.4-14.8)
[2018-03-25 15:28] LABS: ALBUMIN 2.3 g/dL (3.4-5.0); ANION GAP 6 mmol/L (5-15); CALCIUM 8.1 mg/dL (8.5-10.1); CHLORIDE 107 mmol/L (98-107); CREATININE 0.82 mg/dL (0.7-1.3)
[2018-03-25] MEDS ORDERED: FERR324T5 PO (15:37)
[2018-03-25] MEDS ORDERED: IPRA12.9 INH (15:37)
[2018-03-25] MEDS ORDERED: BUDE10.2 INH (15:37)
--- NOTE | 2018-03-25 15:50 | NUR ---
CT complete. Resting with eyes closed
[2018-03-25 16:39] LABS: MICROSCOPIC NOT IND
[2018-03-25 16:41] LABS: CULTURE INDICATED? NO
[2018-03-25] MEDS ORDERED: ONDANSETRON ODT 4 MG PO PRN (17:00)
[2018-03-25] MEDS ORDERED: ACETAMINOPHEN 325 MG TABLET PO PRN (17:00)
[2018-03-25] MEDS ORDERED: BISACODYL 10 MG SUPP PR PRN (17:00)
[2018-03-25] MEDS ORDERED: POLYETHYLENE GLYCOL 17 GM PACKET PO PRN (17:00)
[2018-03-25] MEDS ORDERED: DOCUSATE 100 MG CAPSULE PO PRN (17:00)
[2018-03-25] MEDS ORDERED: ONDANSETRON 2MG/ML, 2ML IVPush PRN (17:00)
[2018-03-25] MEDS ORDERED: ENALAPRILAT 1.25 MG/ML, 2ML IVPush PRN (17:00)
[2018-03-25] MEDS ORDERED: LABETALOL 5MG/ML, 20ML IVPush PRN (17:00)
--- NOTE | 2018-03-25 17:30 | NUR ---
Report called to Haritha GODOY, floor ready for pt transport.
--- NOTE | 2018-03-25 17:44 | NUR ---
PIV inserted and pt to MRI via gurney.
[2018-03-25] MEDS ORDERED: GADOBUTROL 7.5 MMOL/7.5 ML PFS ONE (18:23)
[2018-03-25 18:47] LABS: HCT (SEDRATE) 25.9 % (39.2-51.8)
[2018-03-25 19:15] VITALS: BP 146/72
[2018-03-25] MEDS: BUDESONIDE 0.5 MG/2 ML INHA HHN SCH (19:30)
[2018-03-25] MEDS ORDERED: IPRATROPIUM BROMIDE 0.2 MG INH SCH (21:00)
[2018-03-25] MEDS ORDERED: TEMPLATE NON-FORMULARY MED. (Budesonide/Formoterol Fumarate (Symbicort 160-4.5 Mcg Inhaler INH SCH (21:00)
[2018-03-25] MEDS: ALBUTEROL/IPRATROPIUM 2.5MG/0.5MG, 3 ML NPPB SCH (21:00)
[2018-03-25] MEDS ORDERED: FLUT1AER INH (21:33)
[2018-03-25] MEDS: LISINOPRIL 20 MG TABLET PO SCH (22:25)
[2018-03-25] MEDS: ATORVASTATIN 10 MG TABLET PO SCH (22:25)
[2018-03-25] MEDS: ENOXAPARIN 40 MG/0.4 ML SQ SCH (22:25)
[2018-03-26 01:21] VITALS: BP 137/79
[2018-03-26 05:34] LABS: BASOPHILS # (AUTO) 0.06 x10^3/uL (0-0.1); BASOPHILS % (AUTO) 1 % (0-1); EOSINOPHILS # (AUTO) 0.18 x10^3/uL (0-0.4); EOSINOPHILS % (AUTO) 3 % (1-7); LYMPHOCYTES # (AUTO) 1.41 x10^3/uL (1-3.4); LYMPHOCYTES % (AUTO) 20 % (22-44); MD NO; MEAN CORPUSCULAR HEMOGLOBIN 28.7 pg (27.5-34.5); MEAN CORPUSCULAR HGB CONC 33.9 g/dL (33.2-36.2); MEAN CORPUSCULAR VOLUME 84.8 fL (81-97); MEAN PLATELET VOLUME 7.2 fL (7.4-10.4); MONOCYTES # (AUTO) 0.41 x10^3/uL (0.2-0.8); MONOCYTES % (AUTO) 6 % (2-9); NEUTROPHILS % (AUTO) 71 % (42-75); PLATELET COUNT 299 x10^3/uL (130-400); RED BLOOD COUNT 3.02 x10^6/uL (4.38-5.82); RED CELL DISTRIBUTION WIDTH 18.2 % (9.4-14.8)
[2018-03-26 05:45] LABS: ANION GAP 5 mmol/L (5-15); CHLORIDE 107 mmol/L (98-107); CHOLESTEROL, TOTAL 102 mg/dL (140-239); CREATININE 0.57 mg/dL (0.7-1.3)
[2018-03-26 05:48] LABS: CHOL/HDL RATIO 2.8; HDL CHOL % 35 % (26-37); HDL CHOLESTEROL (DIRECT) 36 mg/dL (40-60); LDL CHOLESTEROL,CALCULATED 45 mg/dL (54-169); LDL/HDL RATIO 1.3 (0.5-3.0); TRIGLYCERIDES 104 mg/dL (50-200); VLDL CHOLESTEROL 21 mg/dL (0-25)
[2018-03-26] MEDS: ALBUTEROL/IPRATROPIUM 2.5MG/0.5MG, 3 ML NPPB SCH ×4 (06:00→20:15)
[2018-03-26 06:43] VITALS: BP 142/67
[2018-03-26] MEDS: BUDESONIDE 0.5 MG/2 ML INHA HHN SCH ×2 (07:30→20:15)
[2018-03-26] MEDS: LISINOPRIL 20 MG TABLET PO SCH ×2 (08:33→21:31)
[2018-03-26] MEDS ORDERED: ASPIRIN 81 MG TABLET EC PO SCH (09:00)
[2018-03-26] MEDS ORDERED: FERROUS SULFATE 325 MG TABLET PO SCH (09:00)
[2018-03-26] MEDS ORDERED: TEMPLATE NON-FORMULARY MED. (Tiotropium Bromide** (Spiriva**) 18 MCG) INH SCH (09:00)
[2018-03-26] MEDS ORDERED: FLUTICASONE/VILANTEROL 200-25MCG/INH INH SCH (09:00)
[2018-03-26 12:39] VITALS: BP 119/63
[2018-03-26 13:43] LABS: THYROID STIMULATING HORMONE 1.13 mIU/L (0.358-3.740)
[2018-03-26] MEDS: FERROUS SULFATE 325 MG TABLET PO SCH (17:58)
[2018-03-26 18:50] VITALS: BP 103/62
[2018-03-26] MEDS: ATORVASTATIN 10 MG TABLET PO SCH (21:31)
[2018-03-26] MEDS: ENOXAPARIN 40 MG/0.4 ML SQ SCH (21:31)
[2018-03-27 01:20] VITALS: BP 108/66
[2018-03-27] MEDS: ALBUTEROL/IPRATROPIUM 2.5MG/0.5MG, 3 ML NPPB SCH ×4 (06:00→18:45)
[2018-03-27] MEDS: BUDESONIDE 0.5 MG/2 ML INHA HHN SCH ×2 (07:30→18:45)
[2018-03-27 08:13] VITALS: BP 130/62
[2018-03-27] MEDS: FERROUS SULFATE 325 MG TABLET PO SCH ×3 (08:47→16:16)
[2018-03-27] MEDS: CLOPIDOGREL 75 MG TABLET PO SCH (08:47)
[2018-03-27] MEDS: LISINOPRIL 20 MG TABLET PO SCH ×2 (08:48→20:28)
[2018-03-27] MEDS ORDERED: OMNIPAQUE 350 MG/ML, 100ML BOTTLE ONE (11:36)
[2018-03-27 14:13] VITALS: BP 121/58
[2018-03-27 19:16] VITALS: BP 131/54
[2018-03-27] MEDS: ENOXAPARIN 40 MG/0.4 ML SQ SCH (20:00)
[2018-03-27] MEDS: ATORVASTATIN 10 MG TABLET PO SCH (20:28)
[2018-03-28 01:37] VITALS: BP 135/61
[2018-03-28] MEDS: ALBUTEROL/IPRATROPIUM 2.5MG/0.5MG, 3 ML NPPB SCH ×4 (07:00→19:50)
[2018-03-28] MEDS: BUDESONIDE 0.5 MG/2 ML INHA HHN SCH ×2 (07:00→19:50)
[2018-03-28 07:27] VITALS: BP 132/65
[2018-03-28] MEDS: FERROUS SULFATE 325 MG TABLET PO SCH ×3 (08:00→17:26)
[2018-03-28] MEDS: LISINOPRIL 20 MG TABLET PO SCH ×2 (09:32→20:45)
[2018-03-28] MEDS: CLOPIDOGREL 75 MG TABLET PO SCH (09:32)
[2018-03-28] MEDS ORDERED: CLOP75TA PO (12:55)
[2018-03-28] MEDS ORDERED: FERR-51 PO (12:55)
[2018-03-28] MEDS ORDERED: ATOR10TA9 PO (12:57)
[2018-03-28 14:08] VITALS: BP 113/64
[2018-03-28 20:08] VITALS: BP 131/65
[2018-03-28] MEDS: ENOXAPARIN 40 MG/0.4 ML SQ SCH (20:45)
[2018-03-28] MEDS ORDERED: ATORVASTATIN 20 MG TABLET PO SCH (21:00)
[2018-03-29 02:17] VITALS: BP 119/61
[2018-03-29 05:11] LABS: ANION GAP 4 mmol/L (5-15); CALCIUM 8.4 mg/dL (8.5-10.1); CHLORIDE 106 mmol/L (98-107); CREATININE 0.58 mg/dL (0.7-1.3)
[2018-03-29 07:55] VITALS: BP 117/66
[2018-03-29] MEDS: BUDESONIDE 0.5 MG/2 ML INHA HHN SCH (08:12)
[2018-03-29] MEDS: ALBUTEROL/IPRATROPIUM 2.5MG/0.5MG, 3 ML NPPB SCH ×2 (08:12→11:00)
[2018-03-29] MEDS: FERROUS SULFATE 325 MG TABLET PO SCH ×3 (09:03→17:18)
[2018-03-29] MEDS: CLOPIDOGREL 75 MG TABLET PO SCH (09:03)
[2018-03-29] MEDS: LISINOPRIL 20 MG TABLET PO SCH (09:04)
[2018-03-29 13:04] VITALS: BP 136/66
== END 2018-03-29 17:54 | DRG 64 ==
LOC: ED 15:57 → EDIP 17:13 → INTOOBSV 17:13 → 4WST 18:53 → OBSVTOIN 03-27 15:10
PROVIDERS: ADMIT Hospitalist; ATTEND Hospitalist
DX: I63.9 Cerebral infarction, unspecified (principal); E43 Unspecified severe protein-calorie malnutrition; J96.10 Chronic respiratory failure, unspecified whether with hypoxia or hypercapnia; I65.23 Occlusion and stenosis of bilateral carotid arteries; D64.9 Anemia, unspecified; E88.09 Other disorders of plasma-protein metabolism, not elsewhere classified; F03.90 Unspecified dementia, unspecified severity, without behavioral disturbance, psychotic disturbance, mood disturbance, and anxiety; I10 Essential (primary) hypertension; I73.9 Peripheral vascular disease, unspecified; I25.10 Atherosclerotic heart disease of native coronary artery without angina pectoris; J44.9 Chronic obstructive pulmonary disease, unspecified; M48.02 Spinal stenosis, cervical region; M50.31 Other cervical disc degeneration, high cervical region; Z79.02 Long term (current) use of antithrombotics/antiplatelets; Z87.891 Personal history of nicotine dependence; Z95.5 Presence of coronary angioplasty implant and graft; Z99.81 Dependence on supplemental oxygen
CPT/HCPCS: 36415; 70450; 70496; 70498; 70551; 72125; 72156; 80048; 80061; 81003; 82040; 82728; 83540; 83550; 83735; 84443; 84466; 85025; 85651; 86140; 93005; 93306; 93880; 94640; A9585; G0378; J1650; J7620; J7626; Q9967

== ENCOUNTER 2019-02-06 19:03 | Inpatient (IN) | payer MEDICARE, MEDICAID ==
[~2019-02-06] VITALS: Ht 175.3 cm; Wt 67.4 kg
[~2019-02-06 19:03] MED LIST changes: +AZIT500T10 PO; -AZIT500T5 PO; +BUDE10.2 INH; +CLOP75TA PO; +FERR-51 PO; +FERR324T5 PO; +FLUT1AER INH; -GUAI200T3 PO; +GUAI200T37 PO; +IPRA12.9 INH
--- NOTE | 2019-02-06 19:04 | NUR ---
PT ARRIVAL TO ED WITH ONSET OF SEIZURE AND STROKE LIKE SYMPTOMS. PT EVALUATED BY ANTOINE SEGAL IN HALLWAY PRIOR TO GOING TO CT. PT PRESENTS WITH LEFT SIDED SEIZURE ACTIVITY WITH FIXED PULILS. PT TO CT, UNABLE TO COMPLETE HEAD CT DUE TO PT TREMORS. PT TO ROOM TR04. RN ATTEMPTED SUCTION, NO GAG REFLEX, UNABLE TO SUCTION. PER DR. HOLLEY 1G DILANTIN TO BE GIVEN. MED ORDERED FROM PHARMACY. PT MEDICATED WITH 1MG ATIVAN IV, PT TREMORS IMPROVING AND PT ABLE TO RELAX.
--- NOTE | 2019-02-06 19:08 | NUR ---
pg neuro pg code neuro @[phone]
[2019-02-06 19:28] LABS: BASOPHILS # (AUTO) 0.02 x10^3/uL (0-0.1); BASOPHILS % (AUTO) 0 % (0-1); EOSINOPHILS # (AUTO) 0.34 x10^3/uL (0-0.4); EOSINOPHILS % (AUTO) 2 % (1-7); LYMPHOCYTES # (AUTO) 2.38 x10^3/uL (1-3.4); LYMPHOCYTES % (AUTO) 15 % (22-44); MD NO; MEAN CORPUSCULAR HEMOGLOBIN 28.1 pg (27.5-34.5); MEAN CORPUSCULAR HGB CONC 32.3 g/dL (33.2-36.2); MEAN CORPUSCULAR VOLUME 86.8 fL (81-97); MEAN PLATELET VOLUME 8.1 fL (7.4-10.4); MONOCYTES # (AUTO) 0.62 x10^3/uL (0.2-0.8); MONOCYTES % (AUTO) 4 % (2-9); NEUTROPHILS # (AUTO) 12.94 x10^3/uL (1.8-6.8); NEUTROPHILS % (AUTO) 79 % (42-75); PLATELET COUNT 329 x10^3/uL (130-400); RED BLOOD COUNT 3.16 x10^6/uL (4.38-5.82); RED CELL DISTRIBUTION WIDTH 16.8 % (9.4-14.8)
[2019-02-06] MEDS ORDERED: LORazepam 2 MG/ML, 1ML IVPush ONE (19:30)
[2019-02-06] MEDS ORDERED: SODIUM CHLORIDE FLUSH 10ML SYR IVF ONE (19:30)
[2019-02-06] MEDS ORDERED: FILTER 0.22 MICRON IV PRN (19:30)
[2019-02-06] MEDS ORDERED: PLEASE ENTER HEIGHT AND WEIGHT MC SCH (19:30)
[2019-02-06] MEDS ORDERED: PHENYTOIN SODIUM 1,000 MG in SODIUM CHLORIDE 0.9% 100 ML IV ONE (19:30)
[2019-02-06 19:31] LABS: PROTHROMBIN TIME 10.5 Seconds (9.6-11.5)
[2019-02-06 19:33] LABS: ALANINE AMINOTRANSFERASE 14 U/L (12-78); ALBUMIN 3.4 g/dL (3.4-5.0); ANION GAP 15 mmol/L (5-15); CALCIUM 9.6 mg/dL (8.5-10.1); CHLORIDE 104 mmol/L (98-107)
[2019-02-06] MEDS ORDERED: LORazepam 2 MG/ML, 1ML ONE (19:33)
[2019-02-06 19:38] LABS: ALKALINE PHOSPHATASE 75 U/L (45-117); BILIRUBIN,TOTAL 0.3 mg/dL (0.2-1.0); TOTAL PROTEIN 8.2 g/dL (6.4-8.2); TROPONIN I 0.094 ng/mL (0.000-0.045)
[2019-02-06 19:46] LABS: ACETONE, SERUM Trace (10mg/dL) mg/dL (Negative)
--- NOTE | 2019-02-06 20:21 | NUR ---
PT TO CT AT THIS TIME.
[2019-02-06] MEDS ORDERED: DEXTROSE 50%, 50ML SYRINGE IVPush ONE (20:30)
[2019-02-06] MEDS ORDERED: FUROSEMIDE 40 MG/4 ML IVPush ONE (20:30)
[2019-02-06] MEDS ORDERED: CALCIUM CHLORIDE 10%, 10ML SYR IVPush ONE (20:30)
[2019-02-06] MEDS ORDERED: SODIUM BICARB 8.4%, 50ML SYRINGE IVPush ONE (20:30)
[2019-02-06] MEDS ORDERED: INSULIN REGULAR 100 UNITS/ML, 3ML VIAL IVPush ONE (20:30)
[2019-02-06] MEDS ORDERED: OMNIPAQUE 350 MG/ML, 100ML BOTTLE ONE (20:40)
[2019-02-06] MEDS ORDERED: SODIUM BICARBONATE 1 MEQ/ML, 50ML VIAL ONE (20:44)
[2019-02-06] MEDS ORDERED: CALCIUM CHLORIDE 10%, 10ML SYR ONE (20:44)
[2019-02-06] MEDS ORDERED: INSULIN SINGLE DOSE, ER ONE (20:45)
[2019-02-06] MEDS ORDERED: CEFTRIAXONE PMX 1GM/50ML 50 ML ONE (20:59)
[2019-02-06] MEDS ORDERED: AZITHROMYCIN 500 MG in SODIUM CHLORIDE 0.9% 250 ML IVPB ONE (21:00)
[2019-02-06] MEDS ORDERED: SODIUM CHLORIDE 0.9% 1,000ML IVBOLUS ONE (21:00)
[2019-02-06] MEDS ORDERED: CEFTRIAXONE PMX 1GM/50ML 50 ML IVPB ONE (21:00)
[2019-02-06] MEDS ORDERED: FENTANYL PF 100 MCG/2ML ONE (21:12)
--- NOTE | 2019-02-06 21:14 | NUR ---
PT PLACED ON NRB MASK 15L FOR O2 SAT 89% RESP REST 35-40. ERMD SAHM AWARE.
[2019-02-06] MEDS ORDERED: FENTANYL PF 100 MCG/2ML IV ONE (22:00)
[2019-02-06] MEDS ORDERED: PROPOFOL 10 MG/ML, 20ML IVPush ONE (22:00)
[2019-02-06] MEDS ORDERED: PROPOFOL 100 ML IV PRN (22:00)
[2019-02-06] MEDS ORDERED: SODIUM CHLORIDE 0.9% 1,000 ML IV ONE (22:05)
[2019-02-06] MEDS ORDERED: FUROSEMIDE 40 MG/4 ML ONE (22:25)
[2019-02-06] MEDS ORDERED: SODIUM CHLORIDE FLUSH 10ML SYR IVF PRN (22:30)
[2019-02-06] MEDS ORDERED: SODIUM CHLORIDE 0.9% 1,000 ML IV SCH (22:56)
[2019-02-06] MEDS ORDERED: OXYcodone IR 5MG TABLET PO PRN (23:00)
[2019-02-06] MEDS ORDERED: POLYETHYLENE GLYCOL 17 GM PACKET PO PRN (23:00)
[2019-02-06] MEDS ORDERED: PROMETHAZINE 25 MG/ML, 1ML IM PRN (23:00)
[2019-02-06] MEDS ORDERED: DOCUSATE 100 MG CAPSULE PO PRN (23:00)
[2019-02-06] MEDS ORDERED: ONDANSETRON 2MG/ML, 2ML IVPush PRN (23:00)
[2019-02-06] MEDS ORDERED: BISACODYL 10 MG SUPP PR PRN (23:00)
[2019-02-06] MEDS ORDERED: ONDANSETRON ODT 4 MG PO PRN (23:00)
[2019-02-06] MEDS ORDERED: ACETAMINOPHEN 325 MG TABLET PO PRN (23:00)
[2019-02-06] MEDS ORDERED: hydrALAzine 20 MG/ML, 1ML IVPush PRN (23:00)
[2019-02-06] MEDS ORDERED: morphine SULFATE 10 MG/ML, 1ML IVPush PRN (23:00)
[2019-02-06] MEDS ORDERED: HEPARIN 5,000 UNITS/ML, 1ML SQ SCH (23:30)
[2019-02-06] MEDS ORDERED: LIDOCAINE-MPF 1%, 2ML ENDO PRN (23:30)
[2019-02-06] MEDS ORDERED: PHARMACY MAY ADJ FOR RENAL FX MC SCH (23:30)
[2019-02-06 23:41] LABS: FREE T4 (FREE THYROXINE) 1.15 ng/dL (0.76-1.46)
[2019-02-07] MEDS: HEPARIN 5,000 UNITS/ML, 1ML SQ SCH ×4 (00:18→23:11)
[2019-02-07] MEDS: methylPREDNISolone SOD SUCC 125 MG/2 ML IVPush SCH ×5 (00:18→23:12)
[2019-02-07] MEDS: LEVETIRACETAM 500 MG in SODIUM CHLORIDE 0.9% 100 ML IV SCH ×3 (00:19→23:12)
[2019-02-07] MEDS: SODIUM CHLORIDE 0.9% 1,000 ML IV SCH ×3 (01:04→23:12)
[2019-02-07 02:30] VITALS: BP 109/54
[2019-02-07 04:10] VITALS: BP 114/61
[2019-02-07 05:07] LABS: ALBUMIN 2.9 g/dL (3.4-5.0); ANION GAP 10 mmol/L (5-15); CALCIUM 8.6 mg/dL (8.5-10.1); CHLORIDE 105 mmol/L (98-107)
[2019-02-07 05:09] LABS: MEAN CORPUSCULAR HEMOGLOBIN 27.8 pg (27.5-34.5); MEAN CORPUSCULAR HGB CONC 32.7 g/dL (33.2-36.2); MEAN CORPUSCULAR VOLUME 84.8 fL (81-97); MEAN PLATELET VOLUME 7.7 fL (7.4-10.4); PLATELET COUNT 232 x10^3/uL (130-400); RED BLOOD COUNT 3.38 x10^6/uL (4.38-5.82); RED CELL DISTRIBUTION WIDTH 16.4 % (9.4-14.8)
[2019-02-07 05:10] LABS: ALANINE AMINOTRANSFERASE 13 U/L (12-78); ALKALINE PHOSPHATASE 66 U/L (45-117); BILIRUBIN,TOTAL 0.4 mg/dL (0.2-1.0); CHOL/HDL RATIO 2.6; CHOLESTEROL, TOTAL 127 mg/dL (140-239); CREATININE 0.86 mg/dL (0.7-1.3); HDL CHOL % 39 % (26-37); HDL CHOLESTEROL (DIRECT) 49 mg/dL (40-60); LDL CHOLESTEROL,CALCULATED 64 mg/dL (54-169); LDL/HDL RATIO 1.3 (0.5-3.0); TOTAL PROTEIN 6.9 g/dL (6.4-8.2); TRIGLYCERIDES 72 mg/dL (50-200); VLDL CHOLESTEROL 14 mg/dL (0-25)
[2019-02-07 05:42] LABS: BASOPHILS % (AUTO) 0 % (0-1); EOSINOPHILS # (AUTO) 0.11 x10^3/uL (0-0.4); EOSINOPHILS % (AUTO) 1 % (1-7); LYMPHOCYTES # (AUTO) 0.51 x10^3/uL (1-3.4); LYMPHOCYTES % (AUTO) 6 % (22-44); MD SCAN; MONOCYTES # (AUTO) 0.15 x10^3/uL (0.2-0.8); MONOCYTES % (AUTO) 2 % (2-9); NEUTROPHILS # (AUTO) 8.01 x10^3/uL (1.8-6.8); NEUTROPHILS % (AUTO) 91 % (42-75)
[2019-02-07] MEDS: PROPOFOL 100 ML IV PRN ×2 (06:16→09:33)
[2019-02-07] MEDS: ALBUTEROL/IPRATROPIUM 2.5MG/0.5MG, 3 ML NPPB SCH ×4 (06:36→18:56)
[2019-02-07] MEDS: BUDESONIDE 0.5 MG/2 ML INHA NPPB SCH ×2 (09:04→21:00)
[2019-02-07] MEDS: FERROUS SULFATE 325 MG TABLET PO SCH ×3 (09:16→15:57)
[2019-02-07] MEDS: FAMOTIDINE 20 MG/2 ML IVPush SCH ×2 (09:16→21:13)
[2019-02-07] MEDS: LISINOPRIL 20 MG TABLET PO SCH ×2 (09:16→21:13)
[2019-02-07] MEDS: CLOPIDOGREL 75 MG TABLET PO SCH (09:16)
[2019-02-07] MEDS ORDERED: PHARMACOKINETIC MONITORING MC PRN (09:30)
[2019-02-07] MEDS ORDERED: PHARMACOKINETIC CONSULTATION MC ONE (09:30)
[2019-02-07] MEDS: PIPERACILLIN/TAZO/PMX 4.5GM 100 ML IV SCH ×3 (09:35→22:03)
--- NOTE | 2019-02-07 09:51 | NUR ---
TF GOAL: w/ propofol: PROMOTE @ 60ml/hr off propofol: 70ml/hr
[2019-02-07] MEDS: VANCOMYCIN 1,300 MG in SODIUM CHLORIDE 0.9% 250 ML IV SCH (10:25)
[2019-02-07] MEDS ORDERED: CEFTRIAXONE PMX 2GM/50ML 50 ML IV SCH (19:00)
[2019-02-07] MEDS ORDERED: AZITHROMYCIN 500 MG in SODIUM CHLORIDE 0.9% 250 ML IV SCH (20:00)
[2019-02-07] MEDS: ATORVASTATIN 20 MG TABLET PO SCH (21:12)
[2019-02-08] MEDS: PIPERACILLIN/TAZO/PMX 4.5GM 100 ML IV SCH ×4 (03:50→22:24)
[2019-02-08 04:00] VITALS: BP 107/46
[2019-02-08 04:39] LABS: BASOPHILS # (AUTO) 0.02 x10^3/uL (0-0.1); BASOPHILS % (AUTO) 0 % (0-1); EOSINOPHILS # (AUTO) 0.08 x10^3/uL (0-0.4); EOSINOPHILS % (AUTO) 1 % (1-7); LYMPHOCYTES % (AUTO) 5 % (22-44); MD NO; MEAN CORPUSCULAR HEMOGLOBIN 27.5 pg (27.5-34.5); MEAN CORPUSCULAR HGB CONC 32.1 g/dL (33.2-36.2); MEAN CORPUSCULAR VOLUME 85.7 fL (81-97); MEAN PLATELET VOLUME 8.1 fL (7.4-10.4); MONOCYTES # (AUTO) 0.22 x10^3/uL (0.2-0.8); MONOCYTES % (AUTO) 3 % (2-9); NEUTROPHILS # (AUTO) 7.47 x10^3/uL (1.8-6.8); NEUTROPHILS % (AUTO) 91 % (42-75); PLATELET COUNT 193 x10^3/uL (130-400); RED CELL DISTRIBUTION WIDTH 16.2 % (9.4-14.8)
[2019-02-08] MEDS: VANCOMYCIN 1,300 MG in SODIUM CHLORIDE 0.9% 250 ML IV SCH ×2 (05:16→23:00)
[2019-02-08] MEDS: methylPREDNISolone SOD SUCC 125 MG/2 ML IVPush SCH ×2 (05:17→12:10)
[2019-02-08] MEDS: BUDESONIDE 0.5 MG/2 ML INHA NPPB SCH ×2 (06:37→19:45)
[2019-02-08] MEDS: ALBUTEROL/IPRATROPIUM 2.5MG/0.5MG, 3 ML NPPB SCH ×4 (06:37→19:45)
[2019-02-08] MEDS: HEPARIN 5,000 UNITS/ML, 1ML SQ SCH ×2 (06:58→16:14)
[2019-02-08 07:40] LABS: ANION GAP 10 mmol/L (5-15); CALCIUM 8.1 mg/dL (8.5-10.1); CHLORIDE 109 mmol/L (98-107); CREATININE 1.04 mg/dL (0.7-1.3)
[2019-02-08] MEDS: CLOPIDOGREL 75 MG TABLET PO SCH (08:22)
[2019-02-08] MEDS: LISINOPRIL 20 MG TABLET PO SCH ×2 (08:22→20:07)
[2019-02-08] MEDS: FAMOTIDINE 20 MG/2 ML IVPush SCH ×2 (08:22→20:07)
[2019-02-08] MEDS: FERROUS SULFATE 325 MG TABLET PO SCH ×3 (08:22→17:44)
[2019-02-08] MEDS ORDERED: SODIUM CHLORIDE 0.9% 1,000 ML IV SCH (08:30)
[2019-02-08] MEDS: LEVETIRACETAM 500 MG in SODIUM CHLORIDE 0.9% 100 ML IV SCH (12:11)
[2019-02-08] MEDS: ATORVASTATIN 20 MG TABLET PO SCH (20:07)
[2019-02-08] MEDS: methylPREDNISolone SOD SUCC 40 MG/ML IVPush SCH (20:08)
[2019-02-09] MEDS: LEVETIRACETAM 500 MG in SODIUM CHLORIDE 0.9% 100 ML IV SCH ×2 (00:07→12:59)
[2019-02-09] MEDS: HEPARIN 5,000 UNITS/ML, 1ML SQ SCH ×3 (00:08→16:00)
[2019-02-09 04:00] VITALS: BP 148/49
[2019-02-09] MEDS: PIPERACILLIN/TAZO/PMX 4.5GM 100 ML IV SCH ×3 (04:24→18:58)
[2019-02-09] MEDS: methylPREDNISolone SOD SUCC 40 MG/ML IVPush SCH ×2 (04:29→12:34)
[2019-02-09 04:45] LABS: BASOPHILS % (AUTO) 0 % (0-1); EOSINOPHILS # (AUTO) 0.07 x10^3/uL (0-0.4); EOSINOPHILS % (AUTO) 1 % (1-7); LYMPHOCYTES # (AUTO) 0.36 x10^3/uL (1-3.4); LYMPHOCYTES % (AUTO) 6 % (22-44); MD NO; MEAN CORPUSCULAR HEMOGLOBIN 27.8 pg (27.5-34.5); MEAN CORPUSCULAR HGB CONC 31.9 g/dL (33.2-36.2); MEAN CORPUSCULAR VOLUME 87.2 fL (81-97); MEAN PLATELET VOLUME 8.3 fL (7.4-10.4); MONOCYTES # (AUTO) 0.29 x10^3/uL (0.2-0.8); MONOCYTES % (AUTO) 5 % (2-9); NEUTROPHILS # (AUTO) 5.61 x10^3/uL (1.8-6.8); NEUTROPHILS % (AUTO) 89 % (42-75); PLATELET COUNT 200 x10^3/uL (130-400); RED BLOOD COUNT 3.24 x10^6/uL (4.38-5.82); RED CELL DISTRIBUTION WIDTH 16.7 % (9.4-14.8)
[2019-02-09 04:52] LABS: ANION GAP 5 mmol/L (5-15); CALCIUM 8.5 mg/dL (8.5-10.1); CHLORIDE 113 mmol/L (98-107); CREATININE 0.79 mg/dL (0.7-1.3)
[2019-02-09] MEDS: ALBUTEROL/IPRATROPIUM 2.5MG/0.5MG, 3 ML NPPB SCH ×3 (07:32→15:46)
[2019-02-09] MEDS: BUDESONIDE 0.5 MG/2 ML INHA NPPB SCH (07:32)
[2019-02-09 09:01] VITALS: BP_SYST 71
[2019-02-09] MEDS: FAMOTIDINE 20 MG/2 ML IVPush SCH (10:37)
[2019-02-09] MEDS: FERROUS SULFATE 325 MG TABLET PO SCH ×3 (10:38→17:18)
[2019-02-09] MEDS: LISINOPRIL 20 MG TABLET PO SCH ×2 (10:40→21:10)
[2019-02-09] MEDS: CLOPIDOGREL 75 MG TABLET PO SCH (10:45)
[2019-02-09 13:25] VITALS: BP 147/59
[2019-02-09] MEDS ORDERED: morphine SULFATE 10 MG/ML, 1ML IVPush PRN (17:00)
[2019-02-09] MEDS ORDERED: OXYcodone IR 5MG TABLET PO PRN (19:00)
[2019-02-09 19:15] VITALS: BP 146/70
[2019-02-09] MEDS ORDERED: LEVETIRACETAM 500 MG TABLET PO SCH (21:00)
[2019-02-09] MEDS: ATORVASTATIN 20 MG TABLET PO SCH (21:10)
[2019-02-10] MEDS: PIPERACILLIN/TAZO/PMX 4.5GM 100 ML IV SCH ×4 (01:11→19:57)
[2019-02-10] MEDS: HEPARIN 5,000 UNITS/ML, 1ML SQ SCH ×3 (01:12→17:52)
[2019-02-10 01:50] VITALS: BP 121/55
[2019-02-10 05:31] LABS: BASOPHILS # (AUTO) 0.01 x10^3/uL (0-0.1); BASOPHILS % (AUTO) 0 % (0-1); EOSINOPHILS # (AUTO) 0.09 x10^3/uL (0-0.4); EOSINOPHILS % (AUTO) 1 % (1-7); LYMPHOCYTES # (AUTO) 1.05 x10^3/uL (1-3.4); LYMPHOCYTES % (AUTO) 16 % (22-44); MD NO; MEAN CORPUSCULAR HGB CONC 32.4 g/dL (33.2-36.2); MEAN CORPUSCULAR VOLUME 86.4 fL (81-97); MEAN PLATELET VOLUME 8.2 fL (7.4-10.4); MONOCYTES # (AUTO) 0.42 x10^3/uL (0.2-0.8); MONOCYTES % (AUTO) 7 % (2-9); NEUTROPHILS % (AUTO) 76 % (42-75); PLATELET COUNT 204 x10^3/uL (130-400); RED BLOOD COUNT 3.16 x10^6/uL (4.38-5.82); RED CELL DISTRIBUTION WIDTH 16.8 % (9.4-14.8)
[2019-02-10 05:42] LABS: ALBUMIN 2.4 g/dL (3.4-5.0); ANION GAP 5 mmol/L (5-15); CALCIUM 8.2 mg/dL (8.5-10.1); CHLORIDE 115 mmol/L (98-107)
[2019-02-10 05:49] LABS: ALANINE AMINOTRANSFERASE 12 U/L (12-78); ALKALINE PHOSPHATASE 48 U/L (45-117); BILIRUBIN,TOTAL 0.2 mg/dL (0.2-1.0); CREATININE 0.77 mg/dL (0.7-1.3); TOTAL PROTEIN 5.8 g/dL (6.4-8.2); TROPONIN I 0.203 ng/mL (0.000-0.045)
[2019-02-10] MEDS: ALBUTEROL/IPRATROPIUM 2.5MG/0.5MG, 3 ML NPPB SCH ×4 (06:00→18:41)
[2019-02-10 07:02] VITALS: BP 169/75
[2019-02-10] MEDS: BUDESONIDE 0.5 MG/2 ML INHA NPPB SCH ×2 (07:36→18:41)
[2019-02-10] MEDS: FERROUS SULFATE 325 MG TABLET PO SCH ×3 (08:06→17:52)
[2019-02-10] MEDS: LISINOPRIL 20 MG TABLET PO SCH ×2 (09:43→21:15)
[2019-02-10] MEDS: CLOPIDOGREL 75 MG TABLET PO SCH (09:43)
[2019-02-10 13:08] VITALS: BP 158/70
[2019-02-10] MEDS ORDERED: POTASSIUM PHOSPHATE 44 MEQ in SODIUM CHLORIDE 0.9% 500 ML IV ONE (19:00)
[2019-02-10 19:22] VITALS: BP 150/68
[2019-02-10] MEDS: POTASSIUM CHLORIDE 20 MEQ TAB.ER.PRT PO SCH ×2 (19:58→22:06)
[2019-02-10] MEDS: LEVETIRACETAM 500 MG TABLET PO SCH (21:15)
[2019-02-10] MEDS: ATORVASTATIN 80 MG TABLET PO SCH (21:15)
[2019-02-11] MEDS: HEPARIN 5,000 UNITS/ML, 1ML SQ SCH ×3 (00:13→15:41)
[2019-02-11 00:36] LABS: MICROSCOPIC NOT IND
[2019-02-11 00:45] LABS: CULTURE INDICATED? NO
[2019-02-11] MEDS: PIPERACILLIN/TAZO/PMX 4.5GM 100 ML IV SCH ×4 (02:26→19:58)
[2019-02-11 03:54] VITALS: BP 159/71
[2019-02-11 05:23] LABS: ANION GAP 5 mmol/L (5-15); CALCIUM 8.5 mg/dL (8.5-10.1); CHLORIDE 114 mmol/L (98-107)
[2019-02-11 05:24] LABS: CREATININE 0.68 mg/dL (0.7-1.3)
[2019-02-11] MEDS: ALBUTEROL/IPRATROPIUM 2.5MG/0.5MG, 3 ML NPPB SCH ×4 (06:50→19:18)
[2019-02-11] MEDS: BUDESONIDE 0.5 MG/2 ML INHA NPPB SCH ×2 (07:01→19:18)
[2019-02-11 07:26] VITALS: BP 160/55
[2019-02-11] MEDS: FERROUS SULFATE 325 MG TABLET PO SCH ×3 (08:15→17:24)
[2019-02-11] MEDS: LISINOPRIL 20 MG TABLET PO SCH ×2 (08:15→20:10)
[2019-02-11] MEDS: CLOPIDOGREL 75 MG TABLET PO SCH (08:15)
[2019-02-11] MEDS: LEVETIRACETAM 500 MG TABLET PO SCH ×2 (08:16→20:10)
[2019-02-11 13:10] VITALS: BP 149/71
[2019-02-11 18:30] VITALS: BP 152/81
[2019-02-11] MEDS: ATORVASTATIN 80 MG TABLET PO SCH (20:09)
[2019-02-12] MEDS: HEPARIN 5,000 UNITS/ML, 1ML SQ SCH ×2 (00:38→09:10)
[2019-02-12] MEDS: PIPERACILLIN/TAZO/PMX 4.5GM 100 ML IV SCH (01:36)
[2019-02-12 01:53] VITALS: BP 155/67
[2019-02-12] MEDS: ALBUTEROL/IPRATROPIUM 2.5MG/0.5MG, 3 ML NPPB SCH ×2 (06:00→11:00)
[2019-02-12 07:17] VITALS: BP 176/67
[2019-02-12] MEDS ORDERED: CIPROFLOXACIN/PMX 400MG/200ML 200 ML IV SCH (07:30)
[2019-02-12] MEDS: BUDESONIDE 0.5 MG/2 ML INHA NPPB SCH (09:00)
[2019-02-12 09:05] VITALS: BP 145/64
[2019-02-12] MEDS: LEVETIRACETAM 500 MG TABLET PO SCH (09:07)
[2019-02-12] MEDS: FERROUS SULFATE 325 MG TABLET PO SCH ×2 (09:08→12:00)
[2019-02-12] MEDS: CLOPIDOGREL 75 MG TABLET PO SCH (09:08)
[2019-02-12] MEDS: LISINOPRIL 20 MG TABLET PO SCH (09:08)
[2019-02-12] MEDS ORDERED: LEVE500T53 PO (12:00)
[2019-02-12] MEDS ORDERED: ATOR-2 PO (12:00)
[2019-02-12] MEDS ORDERED: CIPR200P4 IV (12:00)
[2019-02-12] MEDS ORDERED: PRED20TA PO (12:00)
[2019-02-12] MEDS ORDERED: FLU VACC QS2019-20 36MOS UP/PF 0.5 ML IM-VACC ONE (12:00)
[2019-02-12] MEDS ORDERED: LACT1TAB13 PO (12:00)
[2019-02-12] MEDS ORDERED: ONDA4TAB13 PO (12:00)
[2019-02-12] MEDS ORDERED: POLY17PO5 PO (12:00)
[2019-02-12 13:35] VITALS: BP 147/85
== END 2019-02-12 14:15 | DRG 871 ==
LOC: ED 21:10 → EDIP 22:05 → CCU 23:49 → 4NE 02-09 08:52 → 4EST 02-10 11:03 → 4NE 02-10 11:03
PROVIDERS: ADMIT Internal Medicine; ATTEND Internal Medicine
PROC: 5A1945Z Respiratory Ventilation, 24-96 Consecutive Hours (ICD-10-PCS; principal; 2019-02-06)
PROC: 0BH17EZ Insertion of Endotracheal Airway into Trachea, Via Natural or Artificial Opening (ICD-10-PCS; 2019-02-06)
DX: A41.9 Sepsis, unspecified organism (principal); G93.41 Metabolic encephalopathy; J96.21 Acute and chronic respiratory failure with hypoxia; I63.9 Cerebral infarction, unspecified; J69.0 Pneumonitis due to inhalation of food and vomit; I69.354 Hemiplegia and hemiparesis following cerebral infarction affecting left non-dominant side; E87.2 Acidosis; G40.209 Localization-related (focal) (partial) symptomatic epilepsy and epileptic syndromes with complex partial seizures, not intractable, without status epilepticus; J44.0 Chronic obstructive pulmonary disease with (acute) lower respiratory infection; J44.1 Chronic obstructive pulmonary disease with (acute) exacerbation; J90 Pleural effusion, not elsewhere classified; J98.11 Atelectasis; J94.8 Other specified pleural conditions; Z99.11 Dependence on respirator [ventilator] status; I24.8 Other forms of acute ischemic heart disease; E78.5 Hyperlipidemia, unspecified; E83.39 Other disorders of phosphorus metabolism; E87.5 Hyperkalemia; E87.6 Hypokalemia; I10 Essential (primary) hypertension; I25.10 Atherosclerotic heart disease of native coronary artery without angina pectoris; Z79.02 Long term (current) use of antithrombotics/antiplatelets; Z79.4 Long term (current) use of insulin; Z79.899 Other long term (current) drug therapy; Z87.891 Personal history of nicotine dependence; Z95.5 Presence of coronary angioplasty implant and graft; Z99.3 Dependence on wheelchair; Z99.81 Dependence on supplemental oxygen
CPT/HCPCS: 36415; 36600; 70450; 70496; 70498; 70551; 71045; 80047; 80048; 80053; 80061; 81003; 82010; 82533; 82803; 83036; 83605; 83735; 83880; 84100; 84145; 84439; 84443; 84478; 84484; 85025; 85610; 85730; 87040; 87070; 87077; 87081; 87186; 87205; 90686; 93005; 93306; 94002; 94003; 94150; 94640; 95819; G0378; J0456; J0696; J0744; J1165; J1644; J1815; J1940; J1953; J2543; J2704; J3010; J3370; J7620; J7626; Q9967; J2060; J2920; J2930; J3490; J7030; J7040; J7050; J7512